=== PATIENT | male | born 1960 | race Caucasian/White ===

== ENCOUNTER 2017-11-12 21:32 | Emergency (ER) | payer OTHER ==
[2017-11-12] MEDS ORDERED: Ondansetron INJ* 2 MG/ML VIAL ONE (21:39)
[2017-11-12] MEDS ORDERED: NS 0.9% 1000 ML* 1,000 ML IV ONE ×3 (21:41→23:34)
--- NOTE | 2017-11-12 21:53 | ED ---
Complex/Multi-Sys Presentation - HPI Summary HPI Summary: This patient is a 57 year old M BIBA to [facility] with a chief complaint diarrhea that began 3 days ago. Pt also complains of multiple recent falls that occurred INSECTICIDE MIXER. Per EMS, patient has had 4 to 5 recent falls; the most recent occurring 3 to 4 hours prior to arrival. The patient rates the pain 0/10 in severity. Symptoms aggravated by nothing. Symptoms alleviated by nothing. Patient reports laceration to R knee, decreased appetite, and nausea. Per EMS, patient is having failure to thrive. Patient reports he cut back on his ETOH consumption 2 weeks ago. - History Of Current Complaint Chief Complaint: EDGeneral Hx Obtained From: Patient, EMS Onset/Duration: Sudden Onset, Lasting Days, Still Present Timing: Constant Severity Currently: Mild Severity Initially: Mild Character: Unable To Describe Aggravating Factor(s): Nothing Alleviating Factor(s): Nothing Associated Signs And Symptoms: Positive: Other - Patient reports laceration to R knee, decreased appetite, diarrhea, and nausea. - Allergies/Home Medications Allergies/Adverse Reactions: Allergies Allergy/AdvReac Type Severity Reaction Status Date / Time No Known Allergies Allergy Verified 11/12/17 23:37 Home Medications: Home Medications Aspirin [Aspir-Low] 1 tab PO DAILY 11/12/17 [History Confirmed 11/12/17] Citalopram Hydrobromide [Citalopram HBr] 40 mg PO DAILY 11/12/17 [History Confirmed 11/12/17] Lisinopril TAB* [Prinivil TAB 5 MG*] 5 mg PO DAILY 11/12/17 [History Confirmed 11/12/17] Metoprolol Succinate 100 mg PO DAILY 11/12/17 [History Confirmed 11/12/17] Triamterene/HCTZ 37.5-25 MG* [Dyazide CAP*] 1 cap PO DAILY 11/12/17 [History Confirmed 11/12/17] PMH/Surg Hx/FS Hx/Imm Hx Previously Healthy: No Cardiovascular History: Reports: Hx Hypertension Respiratory History: Reports: Hx Chronic Obstructive Pulmonary Disease (COPD) Infectious Disease History: No Infectious Disease History: Denies: Traveled Outside the [place] in Last 30 Days - Family History Known Family History: Positive: Unknown - Due to AMS - Social History Occupation: Disabled Lives: Alone Alcohol Use: Rare Substance Use Type: Reports: None Hx Tobacco Use: Yes Smoking Status (MU): Light Every Day Tobacco Smoker Review of Systems - ROS Summary Review of Systems Summary: ROS limited due to altered mental status. Positive: Diarrhea, Nausea, Other - Positive decreased appetite Positive: Other - Positive laceration to R knee All Other Systems Reviewed And Are Negative: No Physical Exam - Summary Physical Exam Summary: Appearance: Alert, conversive, ill appearing Skin: Warm, dry, no mottling, no rashes, no contusions. Superficial lacerations to his R knee. HEENT: EOMI, PERRL, markedly dry mucous membranes Neck: No masses on the neck, supple Respiratory: Clear to auscultation, breath sounds present, no rales, no rhonchi , no wheezes Cardiovascular: RRR, pulses are symmetrical in both lower and upper extremities. Delayed capillary refill Abdomen: Soft, non-tender. Ventral hernia Bowel Sounds: Present Musculoskeletal: No CVA tenderness, no obvious deformity, moving all extremities in a grossly normal manner Neurological: A&Ox3, CN II-XII Intact, moving all extremities symmetrically Psychiatric: Normal affect and mood Triage Information Reviewed: Yes Vital Signs On Initial Exam: Initial Vitals Temp Pulse Resp BP Pulse Ox 97.3 F 83 25 66/50 93 11/12/17 21:44 11/12/17 21:44 11/12/17 21:44 11/12/17 21:44 11/12/17 21:44 Vital Signs Reviewed: Yes Procedures - Central Line Right Femoral Central Line Lumen: triple Central Line Procedure: betadine prep, sterile drapes applied, sterile dressing applied Central Line Position: femoral (R) Anesthesia: Lidocaine cc's of anesthesia: 3 Complications: none Central Line Post Position: sutured, good blood return Diagnostics - Vital Signs Vital Signs Temp Pulse Resp BP Pulse Ox 11/12/17 21:44 97.3 F 83 25 66/50 93 - Laboratory Result Diagrams: 11/12/17 21:55 11/12/17 23:47 Lab Statement: Any lab studies that have been ordered have been reviewed, and results considered in the medical decision making process. - Radiology CXR Radiology Interpretation Completed By: ED Physician - CXR reveals, per ED physician, no acute pneumonias. Poor quality, I cannot see the costophrenic angle. - CT Maxillofacial CT CT Interpretation Completed By: Radiologist - Maxillofacial CT reveals, per radiologist, 1. There are dependent fluid levels in the right and left maxillary sinuses and in the right aspect of the sphenoid sinus, cannot exclude acute sinusitis. 2. No acute maxillofacial fracture. ED physician has reviewed this radiology report. Brain CT CT Interpretation Completed By: Radiologist - Brain CT reveals, per radiologist , 1. There are dependent fluid levels in the right maxillary sinus and right aspect of the sphenoid sinus, cannot exclude acute sinusitis. 2. No acute intracranial pathology. ED physician has reviewed this radiology report. Cervical Spine CT CT Interpretation Completed By: Radiologist - Cervical spine CT reveals, per radiologist, 1. No acute fracture or subluxation. 2. Severe dental caries involving numerous teeth with several foci periapical lucency. ED physician has reviewed this radiology report. - EKG 2158 Cardiac Rate: NL EKG Rhythm: Sinus Rhythm - [address] Segment: Non-Specific EKG Interpretation: PACs, left atrial enlargement, and prolonged QRSD Re-Evaluation - Re-Evaluation First Eval Re-Evaluation Time: 21:50 Change: Unchanged Comment: Blood pressure is 66 systolic. If he is persistently hypotensive, we may have to insert a central line. Second Eval Re-Evaluation Time: 22:02 Change: Improved Comment: His first liter of fluids is finishing and his systolic BP is 72 Third Eval Re-Evaluation Time: 23:10 Change: Unchanged Comment: Discussed results and plan of care with the patient and his family. Fourth Eval Re-Evaluation Time: 23:45 Change: Unchanged Comment: BP is 96/73 Complex Multi-Symp Course/Dx Course Of Treatment: This patient is a 57 year old M BIBA to [facility] with a chief complaint of diarrhea, abd pain, and multiple recent falls that occurred INSECTICIDE MIXER. Per EMS, patient has had 4 to 5 recent falls; the most recent occurring 3 to 4 hours prior to arrival. Physical Exam Findings: Markedly dry mucous membranes. Ventral hernia. Dried stool to his lower extremities. Delayed capillary refill. Superficial lacerations to his R knee. An EKG reveals normal sinus rhythm at 77 BPM, PACs, left atrial enlargement, prolonged QRSD, and nonspecific ST T wave changes. CXR reveals, per ED physician, no acute pneumonias. Poor quality, I cannot see the costophrenic angle. Maxillofacial CT reveals, per radiologist, 1. There are dependent fluid levels in the right and left maxillary sinuses and in the right aspect of the sphenoid sinus, cannot exclude acute sinusitis. 2. No acute maxillofacial fracture. Brain CT reveals, per radiologist, 1. There are dependent fluid levels in the right maxillary sinus and right aspect of the sphenoid sinus, cannot exclude acute sinusitis. 2. No acute intracranial pathology. Cervical spine CT reveals, per radiologist, 1. No acute fracture or subluxation. 2. Severe dental caries involving numerous teeth with several foci periapical lucency. Bloodwork and UA obtained. In the ED course the patient was given fluids, ciprofloxacin, flagyl, levophed, and vancomycin. Consult with Dr. Moore (hospitalist) at 2235. He communicated that if the patient needs new dialysis, then he must be transferred for further evaluation. Consult with Dr. Jenkins (solution professional) at 0028. He agrees to accept the patient at [facility] for further evaluation. The patient is agreeable with this plan. - Diagnoses Provider Diagnoses: Sepsis, Acute renal failure - Physician Notifications Discussed Care Of Patient With: Basilio Moore Time Discussed With Above Provider: 22:35 Instructed by Provider To: Other - Consult with Dr. Moore (hospitalist) at 2235. He communicated that if the patient needs new dialysis, then he must be transferred for further evaluation. Consult with Dr. Jenkins (solution professional) at 0028. He agrees to accept the patient at [facility] for further evaluation. - Critical Care Time Critical Care Time: 75-104 min - 90 minutes Discharge - Sign-Out/Discharge Documenting (check all that apply): Patient Departure - Trasnfer - Discharge Plan Condition: Stable Disposition: TRANS HIGHER LVL OF CARE FAC Referrals: Shima Akers MD [Primary Care Provider] - Attestations Scribe Attestation: This is elba Estrada documenting for attending Kenzie Bhat MD. User Type: Provider with Scribe Provider Attestation: The documentation recorded by the scribe accurately reflects the service I personally performed and the decisions made by me.
[2017-11-12] MEDS ORDERED: Norepinephrine 16MCG/ML IVPRE* 4,000 MCG/250 ML BAG IV ONE ×2 (22:07)
[2017-11-12 22:10] LABS: Hematocrit 59 % (42-52); Mean Corpuscular HGB Conc 34 g/dl (31-36); Mean Corpuscular Hemoglobin 31 pg (27-31); Mean Corpuscular Volume 92 fL (80-94); Mean Platelet Volume 9.7 um3 (7.4-10.4); Platelet Count 207 10^3/ul (150-450); Red Blood Count 6.41 10^6/ul (4.00-5.40); Red Cell Distribution Width 14 % (10.5-15); White Blood Count 25.3 10^3/ul (3.5-10.8)
[2017-11-12 22:18] LABS: ABS Basophils 0 10^3/ul (0-0.2); ABS Eosinophils 0 10^3/ul (0-0.6); ABS Lymphocytes 1.1 10^3/ul (1.0-4.8); ABS Monocytes 0.8 10^3/ul (0-0.8); ABS Neutrophils 23.4 10^3/ul (1.5-7.7); ABS Nucleated RBC 0 10^3/ul
[2017-11-12 22:24] LABS: EGFR Non-African American 5.1 (>60)
[2017-11-12] MEDS ORDERED: Ciprofloxacin 400MG IVPREMIX(* 400 MG/200 ML BAG IVPB ONE (22:36)
[2017-11-12] MEDS ORDERED: metroNIDAZOLE IV 500 MG/100ML* 500 MG/100 ML BAG IVPB ONE (22:37)
[2017-11-12] MEDS ORDERED: Vancomycin(*) 1,500 MG in NS 0.9% 250 ML* 250 ML IVPB ONE (22:37)
[2017-11-12 23:29] LABS: Eosinophil % 0.1 % (0-6); Lymphocyte % 4.4 % (25-47); Nucleated Red Blood Cells % 0.1
--- NOTE | 2017-11-12 23:44 | RAD ---
EXAM: CT Head Without Intravenous Contrast CLINICAL HISTORY: 57 years old, male; Pain; Headache; Additional info: Altered ms TECHNIQUE: Axial computed tomography images of the head/brain without intravenous contrast. COMPARISON: No relevant prior studies available. FINDINGS: Brain: Unremarkable. No hemorrhage. No significant white matter disease. No edema. Ventricles: Unremarkable. No ventriculomegaly. Bones/joints: Unremarkable. No acute fracture. Soft tissues: Unremarkable. Sinuses: There are dependent fluid levels in the right maxillary sinus and right aspect of the sphenoid sinus, cannot exclude acute sinusitis. Mastoid air cells: Unremarkable as visualized. No mastoid effusion. IMPRESSION: 1. There are dependent fluid levels in the right maxillary sinus and right aspect of the sphenoid sinus, cannot exclude acute sinusitis. 2. No acute intracranial pathology. R0
--- NOTE | 2017-11-12 23:46 | RAD ---
EXAM: CT Maxillofacial Without Intravenous Contrast CLINICAL HISTORY: 57 years old, male; Injury or trauma; Fall; Initial encounter; Abrasion; Head/scalp; Loss of consciousness not known; Additional info: Facial trauma TECHNIQUE: Axial computed tomography images of the face without intravenous contrast. Coronal and sagittal reformatted images were created and reviewed. COMPARISON: No relevant prior studies available. FINDINGS: Bones/joints: No acute maxillofacial fracture. Soft tissues: Unremarkable. Orbits: Unremarkable. Sinuses: There are dependent fluid levels in the right and left maxillary sinuses and in the right aspect of the sphenoid sinus, cannot exclude acute sinusitis. There is mild mucosal thickening in the maxillary sinuses. Dental: There is poor dentition with missing teeth, multiple dental cavities and multifocal periodontal disease. IMPRESSION: 1. There are dependent fluid levels in the right and left maxillary sinuses and in the right aspect of the sphenoid sinus, cannot exclude acute sinusitis. 2. No acute maxillofacial fracture. R0
[2017-11-13 00:20] LABS: INR 1.29 (0.77-1.02)
--- NOTE | 2017-11-13 00:26 | RAD ---
EXAM: CT Cervical Spine Without Intravenous Contrast CLINICAL HISTORY: 57 years old, male; Injury or trauma; Fall; Initial encounter; Abrasion; Additional info: Fall, pain TECHNIQUE: Axial computed tomography images of the cervical spine without intravenous contrast. Coronal and sagittal reformatted images were created and reviewed. COMPARISON: No relevant prior studies available. FINDINGS: Vertebrae: No acute fracture or subluxation identified. Vertebral body heights are maintained. There is straightening of the normal cervical lordosis. Mild degenerative change noted from C6-T1. Discs/spinal canal/neural foramina: No acute findings. No spinal canal stenosis. Soft tissues: Unremarkable. Sinuses: There is partial opacification of the right sphenoid sinus. Dental: Severe dental caries noted in numerous teeth with areas of maxillary and mandibular periapical lucency. Lung apices: Unremarkable as visualized. IMPRESSION: 1. No acute fracture or subluxation. 2. Severe dental caries involving numerous teeth with several foci of periapical lucency. R0
[2017-11-13] MEDS ORDERED: NS 0.9% 250 ML* 250 ML ONE (01:50)
[2017-11-13 01:53] LABS: EGFR Non-African American 5.7 (>60)
[2017-11-13 02:03] LABS: ABS Basophils 0 10^3/ul (0-0.2); ABS Eosinophils 0 10^3/ul (0-0.6); ABS Lymphocytes 0.9 10^3/ul (1.0-4.8); ABS Monocytes 0.2 10^3/ul (0-0.8); ABS Neutrophils 24.9 10^3/ul (1.5-7.7); ABS Nucleated RBC 0.1 10^3/ul; Hematocrit 58 % (42-52); Mean Corpuscular HGB Conc 33 g/dl (31-36); Mean Corpuscular Hemoglobin 31 pg (27-31); Mean Corpuscular Volume 94 fL (80-94); Red Blood Count 6.21 10^6/ul (4.00-5.40); Red Cell Distribution Width 14 % (10.5-15)
[2017-11-13 02:48] LABS: ABS Basophils 0 10^3/ul (0-0.2); ABS Neutrophils 10.4 10^3/ul (1.5-7.7); Monocytes % 3 % (0-7)
[2017-11-13 03:04] VITALS: BP 0/0
--- NOTE | 2017-11-13 07:34 | RAD ---
HISTORY: altered, sepsis COMPARISONS: December 24, 2013 VIEWS: 1: frontal portable view of the chest at 11:54 PM. The left costophrenic angle is cut off. FINDINGS: LINES AND TUBES: None. CARDIOMEDIASTINAL SILHOUETTE: The cardiomediastinal silhouette is normal for portable technique. PLEURA: The right costophrenic angle is sharp. The left costophrenic angle is cut off. LUNG PARENCHYMA: The lungs are clear. ABDOMEN: The upper abdomen is clear. There is no subphrenic gas. BONES AND SOFT TISSUES: No bone or soft tissue abnormalities are noted. IMPRESSION: LIMITED STUDY. NO ACTIVE CARDIOPULMONARY DISEASE. R1
--- NOTE | 2017-11-13 16:02 | PN ---
Progress Note - Progress Note Date of Service: 11/12/17 Note: Pt. seen in ER 11/12 and transferred to [facility] with dx of renal failure and sepsis. Preliminary BC today is growing gram positive and negative bacilli. Will fax final culture when available.
--- NOTE | 2017-11-16 06:46 | PN ---
Progress Note - Progress Note Date of Service: 11/16/17 Note: final culture available. patient transferred [facility] so will have results faxed. gave to wardrobe consultant to do so.
== END 2017-11-13 02:45 | disposition short-term general hospital (02) ==
LOC: ED 21:32
DX: A41.9 Sepsis, unspecified organism (principal); R65.20 Severe sepsis without septic shock; N17.9 Acute kidney failure, unspecified; I10 Essential (primary) hypertension; J44.9 Chronic obstructive pulmonary disease, unspecified; Z72.0 Tobacco use; K92.2 Gastrointestinal hemorrhage, unspecified; K02.9 Dental caries, unspecified; Z91.81 History of falling; Z79.82 Long term (current) use of aspirin
CPT/HCPCS: 36415; 70450; 70486; 71045; 72125; 80053; 80320; 82272; 82550; 83605; 83735; 83880; 84443; 84484; 85025; 85610; 85730; 86140; 87040; 87045; 87046; 87077; 87186; 87205; 87899; 93005; 96361; 96374; 96375; 99285; G0480; J0744; J2405; J3370; J3490

== ENCOUNTER 2017-12-12 11:17 | Inpatient (IN) | payer OTHER ==
[2017-12-12] MEDS ORDERED: Acetaminophen TAB* 325 MG PO PRN (16:43)
[2017-12-12 17:15] LABS: EGFR Non-African American 111.6 (>60)
[2017-12-12 17:26] LABS: Hematocrit 26 % (42-52); Hemoglobin 8.2 g/dl (14.0-18.0); Mean Corpuscular HGB Conc 31 g/dl (31-36); Mean Corpuscular Hemoglobin 28 pg (27-31); Mean Corpuscular Volume 90 fL (80-94); Mean Platelet Volume 7.5 um3 (7.4-10.4); Platelet Count 358 10^3/ul (150-450); Red Blood Count 2.93 10^6/ul (4.00-5.40); Red Cell Distribution Width 16 % (10.5-15)
[2017-12-12 17:27] LABS: ABS Basophils 0.1 10^3/ul (0-0.2); ABS Eosinophils 0.3 10^3/ul (0-0.6); ABS Lymphocytes 1.7 10^3/ul (1.0-4.8); ABS Monocytes 0.8 10^3/ul (0-0.8); ABS Neutrophils 8.2 10^3/ul (1.5-7.7); ABS Nucleated RBC 0 10^3/ul; Eosinophil % 2.3 % (0-6); Lymphocyte % 15.1 % (25-47); Nucleated Red Blood Cells % 0.1
[2017-12-12] MEDS ORDERED: Albuterol 2.5 MG/3 ML NEB.SOL* (0.083%) INH PRN (17:52)
[2017-12-12] MEDS ORDERED: Spiriva Inhaler DEVICE* 1 EACH DEVICE SCH (18:00)
[2017-12-12] MEDS ORDERED: Multiple Vitamin IV ADULT* 10 ML, Thiamine IV* 100 MG, Folic Acid IV* 1 MG in NS 0.9% 1... IVPB ONE (20:00)
[2017-12-12] MEDS: Albuterol/Ipratropium NEB.SOL* Albuterol 2.5 MG/Ipratropium 0.5 MG 3 ML INH SCH ×2 (20:18→23:16)
[2017-12-12] MEDS: Mometasone/Formoter 100/5 MDI INH SCH (20:19)
[2017-12-12] MEDS: Diphenoxylat/Atrop 2.5-0.025M* 1 TAB PO SCH (20:22)
--- NOTE | 2017-12-12 21:35 | HP ---
CC: Dr. Akers * ADMISSION HISTORY AND PHYSICAL: DATE OF ADMISSION: 12/12/17 PRIMARY CARE PROVIDER: Dr. Akers. ATTENDING PHYSICIAN: Dr. Tegan Perez.* (DICTATED BY HALEY GUTIERREZ NP) HISTORY OF PRESENT ILLNESS: This is a 57-year-old male patient, who was a patient here at [facility] a month ago. He was transferred to [facility]. Essentially, the patient had acute renal failure in the setting of GI bleeding and also incarcerated bowel. The patient was transferred because he was going to need dialysis, which could not be provided here. For his stay at [facility], he had multiple complications including acute colitis, septic shock, GI hemorrhaging, encephalopathic changes, acute respiratory failure requiring intubation, incarcerated umbilical hernia, status post resection and colostomy, and also lung abscess. The patient underwent treatment for bacteremia from his GI source secondary to his incarcerated bowel. His exploratory laparotomy that was done on 11/14/17 in which 100 cm of bowel was removed. The patient at that time had been on several different pressors and was ultimately extubated on 11/21/17. Post-operatively, he had respiratory failure again requiring reintubation for hypercarbic hypoxic respiratory failure, and he was febrile. A CT scan revealed lung abscess on the right. The patient was started on ertapenem and then was extubated again on 11/25/17. During this time, he also had high output on his ostomy and he was having trouble tolerating p.o. He was experiencing dumping syndrome, malabsorption, and short bowel. The patient was on TPN for several days at that point because of his low caloric intake and malnutrition. The patient continued on TPN per [facility]'s notes, also his renal function came back to normal. At that point, the surgical team at [facility] felt it was stable to come back to [facility]. He was accepted back for rehabilitation needs on Swing status. MEDICATIONS: Per the discharge list from [facility] are: 1. Tylenol 650 mg q.6 hours as needed. 2. Citalopram 40 mg oral daily. 3. Lomotil 2 tablets before meals and nightly 4 times daily. 4. DuoNeb 4 times daily. 5. Lisinopril 5 mg daily. 6. Loperamide 4 mg before meals and nightly up to 4 times a day. 7. Metoprolol 100 mg tablet daily, which is currently being held. 8. Metoprolol tartrate 25 mg 2 times a day, also being held. 9. Ertapenem 1 g IV 24 hours 10. Triamterene and hydrochlorothiazide 37.5/25, one tablet oral daily, also being held. SOCIAL HISTORY: The patient has a 35-year history of smoking 1 pack a day. Denies any ETOH use or abuse. Denies any illicit drug use. He lives with his girlfriend, who is his healthcare proxy, I have not spoken with her yet today. CODE STATUS: He is a full code. DIET: The patient is allowed to have a GI soft diet with Ensure 3 times a day plus TPN. REVIEW OF SYSTEMS: The patient denies any fever, fatigue, or chills. No acute shortness of breath. No abdominal pain. No nausea or vomiting. No diarrhea. No urinary complaints and no further constitutional complaints. PHYSICAL EXAMINATION GENERAL: Today shows a well-appearing individual, in no acute distress. VITAL SIGNS: Temperature is 97.5, blood pressure is 96/68, heart rate 78, respiratory rate 16, sating at 100% on 4 L nasal cannula. HEENT: The patient is atraumatic, normocephalic. PERRLA, nonicteric sclerae. Oral mucosa is moist. Tongue is midline. NECK: Supple, nontender. No JVD noted. No carotid bruits auscultated. LUNGS: The patient has poor air entry bilaterally with decreased air exchange, worse on the right than on the left. He does have bilateral expiratory wheeze and remains oxygen dependent. CARDIOVASCULAR: S1, S2 present. No murmurs, gallops, or rubs noted. Rate and rhythm were regular. ABDOMEN: Soft, nontender, nondistended. He has an ostomy draining soft, green- to- brown stools. He has a surgical wound with janet that are intact. The wound is partially open at the lower portion with some exudative drainage, which is mostly clear, does not appear to be purulent. He has gauze wet packing with dry dressing over it. He does have a significant amount of erythema diffusely across the abdomen around his surgical wound. I am unsure if this is secondary to all the tape versus poor closure at the surgical site. : Deferred. MUSCULOSKELETAL: There is no clubbing and no cyanosis. He has bilateral lower extremity edema. +2 distal pulses palpable. NEUROLOGIC: He is alert and oriented x3. He can be forgetful at times and requires reorientation. PSYCHIATRIC: He is cooperative and appropriate. SKIN: Abdomen and surgical site as noted above. He does have a significant amount of peeling on his feet, does not appear to have any open wounds. DIAGNOSTIC STUDIES/LAB DATA: CBC is pending; however, sodium is 142, potassium 3.8, chloride 104, CO2 36, BUN 32, creatinine 0.73. GFR is 111.6. Glucose 86. Liver function is within normal limits. Albumin 2.4, protein 6.3. AST 12, ALT 14. Alk phos 72. ADMISSION DIAGNOSES: 1. Protein calorie malnutrition secondary to GI losses. 2. Chronic obstructive pulmonary disease and hypoxic respiratory failure, oxygen dependent. 3. Status post small bowel obstruction, bowel resection. 4. Right lung abscess, hospital acquired. 5. Acute renal failure, which is now resolved. PLAN: 1. The patient has been admitted to [facility]. All of his acute issues have resolved. His largest issues to overcome are his protein calorie malnutrition and his respiratory status. At this point, we recommend while the patient is on swing status to have daily PT, ambulate as tolerated. He can shower as tolerated. We will work to get him off of his TPN, if not continue his TPN this evening because the orders were not originally sent with the patient's chart. I spoke with the surgical third year attending at [facility], Dr. Guero Turner from the surgical team who states that the patient has no restrictions on his PO intake and that he should focus on high protein. We will order a GI soft diet with Ensure 3 times a day. Our goal would be to get the patient off the TPN. He will be seen by nutrition. We may also need a calorie count. 2. For his lung abscess, we will continue ertapenem. He needs 4 weeks of this medications which will complete on 12/28/17. Will consult Dr. Dennis to further manage antibiotics. 3. For his COPD, he is currently on DuoNebs. I think at this point, we can continue DuoNebs for the first 24 hours, then do albuterol as needed and start the patient on low-dose Spiriva and Advair to treat his underlying COPD. Titrate and wean his oxygen as tolerated. He is currently on 4 L, I would like to sprint him on 2 L and see how he tolerates. Also, he will need incentive spirometry and continue his pulmonary toilet. 4. Surgical Wound. Will place consult with [employer]. Per Dr. Turner, they were doing daily moist packing with wet to dry dressings, however his surrounding skin appears erythmatous and may need a different approach. Will defer to Wound Care's recommendations. The rest of the patient's course will be determined by further diagnostics, laboratory and any other input from other providers as warranted during this admission. Again, the patient has been [place] [facility] [place] This has been discussed with Dr. Tegan Perez, my attending for today. This admission has taken in excess of 60 minutes interfacing with the staff at [facility] , with staff here in the hospital, pharmacy and assessing the patient directly and coordinating the plan of care with the patient and primary RN. HALEY GUTIERREZ NP [id number]/CPS #: [id number] FRANCISCO
[2017-12-13] MEDS: Albuterol/Ipratropium NEB.SOL* Albuterol 2.5 MG/Ipratropium 0.5 MG 3 ML INH SCH (03:17)
[2017-12-13] MEDS: Mometasone/Formoter 100/5 MDI INH SCH ×2 (07:29→20:34)
[2017-12-13] MEDS: Tiotropium CAP.INH* CAP.INH/18 MCG (USE ORDER SET !) INH SCH (07:29)
[2017-12-13] MEDS ORDERED: ERTAPENEM SODIUM 1 GM IV SCH (08:00)
[2017-12-13] MEDS: Diphenoxylat/Atrop 2.5-0.025M* 1 TAB PO SCH ×4 (08:01→21:54)
[2017-12-13] MEDS: Citalopram TAB* 40 MG PO SCH (08:01)
[2017-12-13] MEDS: Ertapenem* 1 GM in NS 0.9% 50 ML* 50 ML IVPB SCH (08:01)
[2017-12-13] MEDS: Aspirin 81 mg CHEW TAB* 81 MG TAB.CHEW PO SCH (08:01)
--- NOTE | 2017-12-13 15:54 | RAD ---
HISTORY: follow up lung abscess COMPARISONS: November 12, 2012 VIEWS: 2: Frontal and lateral views of the chest. FINDINGS: CARDIOMEDIASTINAL SILHOUETTE: The cardiomediastinal silhouette is normal. ARNAUD: The arnaud are normal. PLEURA: The costophrenic angles are sharp. No pleural abnormalities are noted. LUNG PARENCHYMA: There has been interval development of focal alveolar opacification of the right lower lung, localizing to the right middle lobe. There is linear opacification of the left lower lung ABDOMEN: The upper abdomen is clear. There is no subphrenic gas. BONES AND SOFT TISSUES: No bone or soft tissue abnormalities are noted. OTHER: None. IMPRESSION: THERE HAS BEEN INTERVAL DEVELOPMENT OF CONSOLIDATION OF THE RIGHT LOBE. IF THERE IS CLINICAL CONCERN FOR LUNG ABSCESS, CONSIDER FURTHER EVALUATION WITH CONTRAST-ENHANCED CT OF THE CHEST.
[2017-12-13] MEDS ORDERED: TPN* 24 HR with Sodium Chloride Conc 23.4%* 100 MEQ, Potassium Chloride TPN 50 MEQ, Pot... CENT\\PICC SCH ×12 (17:00)
--- NOTE | 2017-12-13 21:49 | CONS ---
CONSULTATION REPORT: DATE OF CONSULT: 12/13/17 REQUESTING PROVIDER: Kaylee Awan NP CONSULTING SERVICE: Infectious Disease. REASON FOR CONSULT: Lung abscess. IMPRESSION: 1. Report of a lung abscess that developed in the setting of ischemic and necrotic bowel which was resected, acute kidney injury, septic shock. I do not have further information on the lung abscess as far as imaging or his treatment other than that he has been on ertapenem and broad-spectrum antibiotics since early October. 2. Bacteremia E. coli, Klebsiella and bacillus species on 11/12/[address] presented to [facility] with the above symptoms. RECOMMENDATIONS: We will continue his ertapenem. Obtain a chest x-ray to see what is left of this lung abscess and make some decisions about his continued antibiotic therapy based on those results. HISTORY OF PRESENT ILLNESS: This is a 57-year-old man transferred here from [facility] for a rehabilitation stay. He cannot provide any of the preceding history, which was obtained instead from review of the medical record, which shows that he came here mid October with septic shock, acute kidney injury and incarcerated abdominal hernia and was transferred to [facility] where he had the bowel which was resected. He has ostomy formed. He was on pressors, broad- spectrum antibiotics and had multiple intraabdominal procedures. At some point , because of a fever after being there few days he had chest imaging that showed an abscess. He had continued on broad-spectrum antibiotics and finally settled on ertapenem since about early November. He has apparently tolerated that well. Today, he denies any cough, trouble breathing, chest pain, or shortness of breath. He has an ostomy with liquid stool. He has no fever, chills, sweats, or pain. PAST MEDICAL HISTORY: 1. Depression. 2. Abdominal hernia complicated by incarceration, necrotic bowel, status post exploratory laparotomy, resection of bowel. 3. Hypertension. 4. COPD. ALLERGIES: No known drug allergies. MEDICATIONS: 1. Tylenol. 2. Albuterol. 3. Aspirin. 4. Celexa. 5. Ertapenem 1 g IV every 24 hours. 6. Spiriva. SOCIAL HISTORY: His home is in [place]. He has been in the hospital for the last month. Denies injection drugs. FAMILY HISTORY: No recurrent infections. REVIEW OF SYSTEMS: All negative to a 14-point review of systems except as noted above in the history of present illness. PHYSICAL EXAM: Vital Signs: Temperature is 37, respiratory rate 16, blood pressure 129/51, oxygen saturation 98% on 4 L. In general, he is awake, not in distress. Neurologic: He is oriented x2. Follows some commands. Moves all his extremities. HEENT: There is no conjunctival hemorrhage. Oropharynx without lesions. Neck is supple without mass. Heart is regular rate and rhythm without murmurs, rubs, or gallops. Lungs are clear to auscultation bilaterally. Abdomen: Soft, nontender, nondistended. There are bowel sounds present. There is right lower quadrant ostomy with liquid stool. Skin: There is no rash or splinter hemorrhage. Musculoskeletal: There is no spine tenderness to palpation. LABORATORY DATA: White blood cell count 11, hemoglobin 8, MCV 90. Creatinine 0.7. Please see impressions and recommendations as outlined above. Thanks for asking me to see Mr. Alves in consultation. [id number]/[facility] #: [id number] [facility]OSPITALCallie
[2017-12-13] MEDS: Alteplase (CATHFLO)* 2 MG VIAL IV ONE (21:57)
[2017-12-14] MEDS: Nystatin TOP POWDER* 15 GM BTL TOPICAL SCH ×4 (03:00→20:19)
[2017-12-14] MEDS: Alteplase (CATHFLO)* 2 MG VIAL IV ONE (05:52)
[2017-12-14 07:07] LABS: Hematocrit 25 % (42-52); Mean Corpuscular HGB Conc 32 g/dl (31-36); Mean Corpuscular Hemoglobin 29 pg (27-31); Mean Corpuscular Volume 90 fL (80-94); Platelet Count 300 10^3/ul (150-450); Red Blood Count 2.78 10^6/ul (4.00-5.40); Red Cell Distribution Width 16 % (10.5-15); White Blood Count 10.6 10^3/ul (3.5-10.8)
[2017-12-14 07:24] LABS: EGFR Non-African American 151.5 (>60)
[2017-12-14] MEDS: Mometasone/Formoter 100/5 MDI INH SCH ×2 (07:47→20:17)
[2017-12-14] MEDS: Tiotropium CAP.INH* CAP.INH/18 MCG (USE ORDER SET !) INH SCH (07:48)
[2017-12-14 07:50] LABS: ABS Basophils 0.1 10^3/ul (0-0.2); ABS Eosinophils 0.2 10^3/ul (0-0.6); ABS Lymphocytes 1.6 10^3/ul (1.0-4.8); ABS Monocytes 0.7 10^3/ul (0-0.8); ABS Neutrophils 7.9 10^3/ul (1.5-7.7); ABS Nucleated RBC 0 10^3/ul; Eosinophil % 2.2 % (0-6); Lymphocyte % 15.5 % (25-47); Nucleated Red Blood Cells % 0.1
[2017-12-14] MEDS: Diphenoxylat/Atrop 2.5-0.025M* 1 TAB PO SCH ×4 (09:31→20:18)
[2017-12-14] MEDS: Ertapenem* 1 GM in NS 0.9% 50 ML* 50 ML IVPB SCH (09:31)
[2017-12-14] MEDS: Citalopram TAB* 40 MG PO SCH (09:32)
[2017-12-14] MEDS: Aspirin 81 mg CHEW TAB* 81 MG TAB.CHEW PO SCH (09:32)
--- NOTE | 2017-12-14 14:41 | PN ---
Subjective Date of Service: 12/14/17 Interval History: Mr. Alves reports feeling well this morning. He has no complaints. Denies pain. He has been up ambulating in the hallways with PT this morning. Nursing reports that he became slightly agitated this morning, stating that he wanted to leave as none of his family has been visiting him. During my visit, he appeared in good spirits. Family History: Unchanged from Admission Social History: Unchanged from Admission Past Medical History: Unchanged from Admission Objective Active Medications: Acetaminophen (Tylenol Tab*) 650 mg PO Q6HR PRN Albuterol (Ventolin 2.5 Mg/3 Ml Neb.Gissel*) 2.5 mg INH Q4H PRN Aspirin (Aspirin 81 Mg Chew Tab*) 81 mg PO DAILY JESSICA Citalopram Hydrobromide (Celexa Tab*) 40 mg PO DAILY JESSICA Diphenoxylate HCl/Atropine (Lomotil Tab*) 2 tab PO QID ACHS JESSICA Heparin Sodium (Porcine) (Heparin Flush Picc/Ml/Cvc(*)) 1 ml FLUSH 0600,1800 JESSICA; Protocol Ertapenem 1 gm/ Sodium (Chloride) 50 mls @ 100 mls/hr IVPB Q24H JESSICA Sodium Chloride 100 meq/Potassium Chloride 50 meq/Potassium Phosphate 15 mmole/ Calcium Gluconate 15 meq/Magnesium Sulfate 10 meq/Multivitamins 10 ml/ Trace Metals 1 ml/ Dextrose 1,000 ml / Amino Acids 850 ml/ Sterile Water 150 ml/ Fat Emulsion Intravenous 250 ml/ Nutrition (Parenteral) 2,350.721 mls @ 97.947 mls/ hr CENT\PICC 1700 [facility] Sodium Chloride 100 meq/Potassium Chloride 50 meq/Potassium Phosphate 15 mmole/ Calcium Gluconate 15 meq/Magnesium Sulfate 10 meq/Multivitamins 10 ml/ Trace Metals 1 ml/ Dextrose 1,000 ml / Amino Acids 1,000 ml/ Fat Emulsion Intravenous 250 ml/Nutrition (Parenteral) 2,350.721 mls @ 97.947 mls/hr CENT\PICC 1700 JESSICA Mometasone Furoate/Formoterol Fumar (Dulera 100/5 Mdi*) 2 puff INH BID JESSICA Nystatin (Nystatin Top Powder*) 1 applic TOPICAL TID JESSICA Tiotropium [place] (Spiriva Cap.Inh*) 1 cap INH DAILY [facility] Vital Signs - 8 hr 12/14/17 12/14/17 12/14/17 07:34 07:51 08:00 Temperature 98.5 F Pulse Rate 87 89 Respiratory 18 18 Rate Blood Pressure 115/56 (mmHg) O2 Sat by Pulse 97 92 Oximetry 12/14/17 12/14/17 12/14/17 09:31 12:55 13:45 Temperature 99.5 F Pulse Rate 84 Respiratory 18 16 Rate Blood Pressure 130/54 (mmHg) O2 Sat by Pulse 96 Oximetry Oxygen Devices in Use Now: Nasal Cannula Appearance: Middle-aged male sitting in bed in no acute distress. Eyes: No Scleral Icterus, PERRLA Ears/Nose/Mouth/Throat: NL Teeth, Lips, Gums, Mucous Membranes Moist Neck: NL Appearance and Movements; NL JVP, Trachea Midline Respiratory: Symmetrical Chest Expansion and Respiratory Effort, Clear to Auscultation Cardiovascular: NL Sounds; No Murmurs; No JVD, RRR, No Edema Abdominal: NL Sounds; No Tenderness; No Distention, No Hepatosplenomegaly Lymphatic: No Cervical Adenopathy Extremities: No Edema, No Clubbing, Cyanosis Skin: - - Surgical wound to midline abdomen with janet intact. Partially open distally with packing in place. Neurological: Alert and Oriented x 3, NL Sensation, NL Gait Lines/Tubes/Other Access: Clean, Dry and Intact PICC Line Nutrition: Taking PO's, TPN - Nutrition: Malnutrition Diagnosis/Plan Malnutrition Assessment by Registered Dietitian: Malnutrition Assessment Clinical Characteristics Acute Malnutrition Assessment: - wt loss of 13% body wt within past three Criteria months - mild temporal muscle wasting per visual assessment Malnutrition Assessment: 1. [facility] soft diet textures d/t suboptimal Interventions dentition; pt in agreement 2. high calorie/high protein diet; encouragement of high protein snacks/ supplements 3. TPN w/modification for higher protein content (suggest 1000ml 10%AA in TPN) 4. Calorie Count 12/14; results and appropriate interventions 12/15 5. Follow colostomy output and replace electrolytes as appropriate Malnutrition Assessment: Goals 1. adequate nutrient delivery (parenteral + po ) to meet pt's estimated needs and maintain lean body mass and hydration status 2. surgical incision will show evidence of healing; no evidence of other skin breakdown 3. achieve and maintain serum electrolytes WNL Result Diagrams: 12/14/17 06:51 12/14/17 06:51 Assess/Plan/Problems-Billing Assessment: Mr. Alves is a 57 year old male with PMH of COPD, umbilical hernia who presented to [place] [facility] on 11/12/17 with diarrhea and multiple falls and was found to have incarcerated bowel, and ROSALIA r/t GI bleed and was subsequently transferred to [facility] for dialysis. His stay at [facility] was further complicated by septic shock, GI hemorrhage, encephalopathy, acute respiratory failure requiring intubation, lung abscess, incarcerated umbilical hernia s/p resection and colostomy with high ostomy output leading to malnutrition. He was transferred back to [facility] on 12/12/17 swing status. - Patient Problems (1) Moderate protein-calorie malnutrition Current Visit: Yes Status: Acute Priority: High Code(s): E44.0 - MODERATE PROTEIN-CALORIE MALNUTRITION SNOMED Code(s): 106700854 Comment: - 2/2 short gut syndrome and high output ostomy - Continue TPN as supplement, recommendations per associate web developer - Encouarge high protein PO intake, no restrictions Mud Analysis Supervisor consult: Malnutrition Assessment Criteria: - Acute - Wt loss of 13% body wt within past three months - Mild temporal muscle wasting per visual assessment Malnutrition Assessment Interventions: 1. [facility] soft diet textures d/t suboptimal dentition; pt in agreement 2. high calorie/high protein diet; encouragement of high protein snacks/ supplements 3. TPN w/modification for higher protein content (suggest 1000ml 10%AA in TPN) 4. Calorie Count 12/14; results and appropriate interventions 12/15 5. Follow colostomy output and replace electrolytes as appropriate (2) Lung abscess Current Visit: Yes Status: Acute Priority: High Code(s): J85.2 - ABSCESS OF LUNG WITHOUT PNEUMONIA SNOMED Code(s): 44228319 Comment: - Needs 4 weeks of ertapenem, done 12/28/17 (3) Status post small bowel resection Current Visit: Yes Status: Acute Priority: High Code(s): Z90.49 - ACQUIRED ABSENCE OF OTHER SPECIFIED PARTS OF DIGESTIVE TRACT SNOMED Code(s): 236332408675688 Comment: - Wound management per wound care consult (4) COPD (chronic obstructive pulmonary disease) Current Visit: Yes Status: Acute Priority: Medium Code(s): J44.9 - CHRONIC OBSTRUCTIVE PULMONARY DISEASE, UNSPECIFIED SNOMED Code(s): 85897944 Comment: - Continue dulera, spiriva, albuterol nebs PRN - Titrate oxygen (5) Full code status Current Visit: Yes Status: Acute Priority: High Code(s): Z78.9 - OTHER SPECIFIED HEALTH STATUS SNOMED Code(s): 928601444 (6) DVT prophylaxis Current Visit: Yes Status: Acute Code(s): HCG0182 - SNOMED Code(s): 349712743 Comment: - Lovenox Status and Disposition: Swing status for IV antibiotics.
[2017-12-14] MEDS: TPN* 24 HR with Sodium Chloride Conc 23.4%* 100 MEQ, Potassium Chloride TPN 50 MEQ, Pot... CENT\\PICC SCH ×11 (17:12)
[2017-12-14] MEDS: Enoxaparin(*) 40 MG/0.4 ML SYR SUBCUT SCH (17:17)
[2017-12-15] MEDS ORDERED: Meropenem 1 GM PREMIX(*) 1 GM/50 ML BAG IV SCH (06:00)
[2017-12-15] MEDS ORDERED: Alteplase (CATHFLO)* 2 MG VIAL IV ONE (06:25)
[2017-12-15] MEDS: Diphenoxylat/Atrop 2.5-0.025M* 1 TAB PO SCH ×4 (07:43→20:28)
[2017-12-15] MEDS: Citalopram TAB* 40 MG PO SCH (07:43)
[2017-12-15] MEDS: Aspirin 81 mg CHEW TAB* 81 MG TAB.CHEW PO SCH (07:43)
[2017-12-15] MEDS: Tiotropium CAP.INH* CAP.INH/18 MCG (USE ORDER SET !) INH SCH (08:40)
[2017-12-15] MEDS: Mometasone/Formoter 100/5 MDI INH SCH ×2 (08:40→20:21)
[2017-12-15] MEDS: Nystatin TOP POWDER* 15 GM BTL TOPICAL SCH ×3 (08:54→20:28)
--- NOTE | 2017-12-15 09:19 | PN ---
Progress Note - Progress Note Date of Service: 12/15/17 SOAP: Subjective: CC: lung abscess HPI: 57 year old man with right middle lobe lung abscess when found to have a cavitary lung lesion in setting of fever at the end of October. His sputum culture at that time grew Ecoli that was sensitive to ancef, FQ, Sulfa. He was on IV antibiotics and then DC on ertapenem for convenience. Xray done here before transfer to [facility] did not show a lung lesion. He has no cough or chest pain. Objective: Vital Signs Temp 36.8 C 12/15/17 07:18 Pulse 85 12/15/17 08:43 Resp 16 12/15/17 08:43 BP 120/52 12/15/17 07:18 Pulse Ox 92 12/15/17 08:43 Intake & Output 12/14/17 12/15/17 12/15/17 18:59 06:59 18:59 Intake Total 480 2090 240 Output Total 250 1000 350 Balance 230 1090 -110 Weight 252 lb 3.2 oz Intake: IVPB 105 ABX 105 TPN/PPN 1985 Oral 480 0 240 Output: Urine 0 750 350 Colostomy 250 Ileostomy 250 Other: Estimated Void Large # Bowel Movements 0 Estimated Stool Amount Medium # Voids 1 Gen:awake, no distress Heart:Regular, no murmur Lungs:CTA BL Abd:+BS NTND soft; ostomy Skin: no rash Laboratory Results - last 24 hr 12/14/17 12/14/17 12/14/17 06:51 11:58 18:33 Sodium 144 Potassium 4.1 Chloride 106 Carbon Dioxide 34 H Anion Gap 4 BUN 16 Creatinine 0.56 L Est GFR ( Amer) 183.3 Est GFR (Non-Af Amer) 151.5 BUN/Creatinine Ratio 28.6 H Glucose 107 H POC Glucose (mg/dL) 186 H 151 H Calcium 8.2 L C-Reactive Protein 32.87 H 12/15/17 12/15/17 00:07 06:14 Sodium Potassium Chloride Carbon Dioxide Anion Gap BUN Creatinine Est GFR ( Amer) Est GFR (Non-Af Amer) BUN/Creatinine Ratio Glucose POC Glucose (mg/dL) 145 H 120 H Calcium C-Reactive Protein Assessment: 1. Lung abscess, E.coli, not surprisingly it persists on XRay done yesterday. Have susceptibility data now. 2. elevated CRP due to #1 3. necrotic bowel s/p resection and ostomy 4. morbid obesity Plan: 1. ceftriaxone day ; weekly cbc, cmp, crp. CT chest at end of course to ensure resolution.
--- NOTE | 2017-12-15 15:32 | RAD ---
Indication: PICC placement. Single view of the chest demonstrates left PICC line in place. The tip is in the superior vena cava. No pneumothorax is noted. Right lower lobe airspace disease is noted. IMPRESSION: PICC line is noted in the superior vena cava. Right lower lobe infiltrate. No changes noted since December 13, 2017.
[2017-12-15] MEDS: cefTRIAXone(*) 2 GM in NS 0.9% 50 ML* 100 ML IVPB SCH (15:56)
[2017-12-15] MEDS: Enoxaparin(*) 40 MG/0.4 ML SYR SUBCUT SCH (16:00)
[2017-12-15] MEDS: TPN* 24 HR with Sodium Chloride Conc 23.4%* 100 MEQ, Potassium Chloride TPN 50 MEQ, Pot... CENT\\PICC SCH ×11 (17:38)
[2017-12-16 06:14] LABS: EGFR Non-African American 132.2 (>60)
[2017-12-16] MEDS: Tiotropium CAP.INH* CAP.INH/18 MCG (USE ORDER SET !) INH SCH (08:13)
[2017-12-16] MEDS: Mometasone/Formoter 100/5 MDI INH SCH ×2 (08:14→19:54)
[2017-12-16] MEDS: Citalopram TAB* 40 MG PO SCH (08:52)
[2017-12-16] MEDS: Aspirin 81 mg CHEW TAB* 81 MG TAB.CHEW PO SCH (08:52)
[2017-12-16] MEDS: Diphenoxylat/Atrop 2.5-0.025M* 1 TAB PO SCH ×4 (08:52→20:27)
[2017-12-16] MEDS: Nystatin TOP POWDER* 15 GM BTL TOPICAL SCH ×3 (08:52→20:28)
[2017-12-16] MEDS ORDERED: Magnesium Sulfate 3 GM IV IVPB ONE ×2 (13:00)
[2017-12-16] MEDS: cefTRIAXone(*) 2 GM in NS 0.9% 50 ML* 100 ML IVPB SCH (16:05)
[2017-12-16] MEDS: Enoxaparin(*) 40 MG/0.4 ML SYR SUBCUT SCH (16:05)
[2017-12-16] MEDS: TPN* 24 HR with Sodium Chloride Conc 23.4%* 100 MEQ, Potassium Chloride TPN 50 MEQ, Pot... CENT\\PICC SCH ×11 (17:17)
[2017-12-17] MEDS: Tiotropium CAP.INH* CAP.INH/18 MCG (USE ORDER SET !) INH SCH (07:23)
[2017-12-17] MEDS: Mometasone/Formoter 100/5 MDI INH SCH ×2 (07:23→22:05)
[2017-12-17] MEDS: Aspirin 81 mg CHEW TAB* 81 MG TAB.CHEW PO SCH (07:49)
[2017-12-17] MEDS: Citalopram TAB* 40 MG PO SCH (07:49)
[2017-12-17] MEDS: Nystatin TOP POWDER* 15 GM BTL TOPICAL SCH ×3 (07:49→21:22)
[2017-12-17] MEDS: Diphenoxylat/Atrop 2.5-0.025M* 1 TAB PO SCH ×4 (07:49→21:22)
[2017-12-17] MEDS: cefTRIAXone(*) 2 GM in NS 0.9% 50 ML* 100 ML IVPB SCH (15:02)
[2017-12-17] MEDS: Enoxaparin(*) 40 MG/0.4 ML SYR SUBCUT SCH (16:02)
[2017-12-17] MEDS: TPN* 24 HR with Sodium Chloride Conc 23.4%* 100 MEQ, Potassium Chloride TPN 50 MEQ, Pot... CENT\\PICC SCH ×11 (16:43)
[2017-12-18] MEDS: Mometasone/Formoter 100/5 MDI INH SCH ×2 (07:29→20:11)
[2017-12-18] MEDS: Tiotropium CAP.INH* CAP.INH/18 MCG (USE ORDER SET !) INH SCH (07:29)
[2017-12-18] MEDS: Diphenoxylat/Atrop 2.5-0.025M* 1 TAB PO SCH ×4 (09:07→20:40)
[2017-12-18] MEDS: Aspirin 81 mg CHEW TAB* 81 MG TAB.CHEW PO SCH (09:08)
[2017-12-18] MEDS: Citalopram TAB* 40 MG PO SCH (09:08)
[2017-12-18] MEDS: Nystatin TOP POWDER* 15 GM BTL TOPICAL SCH ×3 (09:11→22:53)
--- NOTE | 2017-12-18 09:50 | PN ---
Subjective Date of Service: 12/18/17 Interval History: Mr. Alves denies complaint including chest pain, SOB, nausea, or abdominal pain. Family History: Unchanged from Admission Social History: Unchanged from Admission Past Medical History: Unchanged from Admission Objective Active Medications: Acetaminophen (Tylenol Tab*) 650 mg PO Q6HR PRN Albuterol (Ventolin 2.5 Mg/3 Ml Neb.Gissel*) 2.5 mg INH Q4H PRN Aspirin (Aspirin 81 Mg Chew Tab*) 81 mg PO DAILY JESSICA Citalopram Hydrobromide (Celexa Tab*) 40 mg PO DAILY JESSICA Device (Tiotropium Inhaler Device*) 1 each .SEE ORDER .USE w/ SPIRIVA CAPS JESSICA Diphenoxylate HCl/Atropine (Lomotil Tab*) 2 tab PO QID ACHS JESSICA Enoxaparin Sodium (Lovenox(*)) 40 mg SUBCUT Q24H JESSICA Heparin Sodium (Porcine) (Heparin Flush Picc/Ml/Cvc(*)) 1 ml FLUSH 0600,1800 JESSICA; Protocol Sodium Chloride 100 meq/Potassium Chloride 50 meq/Potassium Phosphate 15 mmole/ Calcium Gluconate 15 meq/Magnesium Sulfate 10 meq/Multivitamins 10 ml/ Trace Metals 1 ml/ Dextrose 1,000 ml / Amino Acids 1,000 ml/ Fat Emulsion Intravenous 250 ml/Nutrition (Parenteral) 2,350.721 mls @ 97.947 mls/hr CENT\PICC 1700 JESSICA Ceftriaxone Sodium 2 gm/ (Sodium Chloride) 100 mls @ 200 mls/hr IVPB Q24H JESSICA Mometasone Furoate/Formoterol Fumar (Dulera 100/5 Mdi*) 2 puff INH BID JESSICA Nystatin (Nystatin Top Powder*) 1 applic TOPICAL TID JESSICA Tiotropium [place] (Spiriva Cap.Inh*) 1 cap INH DAILY [facility] Vital Signs: Temp Pulse Resp BP Pulse Ox 98.2 F 70 20 119/54 90 12/17/17 08:26 12/18/17 07:31 12/18/17 09:07 12/17/17 08:26 12/18/17 07:31 Oxygen Devices in Use Now: Nasal Cannula Appearance: Male lying in bed in NAD Eyes: No Scleral Icterus Ears/Nose/Mouth/Throat: Mucous Membranes Moist Neck: Trachea Midline Respiratory: Symmetrical Chest Expansion and Respiratory Effort, Clear to Auscultation Cardiovascular: NL Sounds; No Murmurs; No JVD, No Edema Abdominal: - - Soft, nontender, BS positive, ostomy leaking from medial side. Area all around erythematous. Midline abdominal incision with janet, open area in middle of incision line, approximately 1 cm in diameter. Stoma pink and beefy. Extremities: No Edema Skin: No Rash or Ulcers Neurological: Alert and Oriented x 3, NL Muscle Strength and Tone Nutrition: Taking PO's - Nutrition: Malnutrition Diagnosis/Plan Malnutrition Assessment by Registered Dietitian: Malnutrition Assessment Clinical Characteristics Acute Malnutrition Assessment: - wt loss of 13% body wt within past three Criteria months - mild temporal muscle wasting per visual assessment Malnutrition Assessment: 1. [facility] soft diet textures d/t suboptimal Interventions dentition; pt in agreement 2. high calorie/high protein diet; encouragement of high protein snacks/ supplements 3. TPN w/modification for higher protein content (suggest 1000ml 10%AA in TPN) 4. Calorie Count 12/14; results and appropriate interventions 12/15 5. Follow colostomy output and replace electrolytes as appropriate Malnutrition Assessment: Goals 1. adequate nutrient delivery (parenteral + po ) to meet pt's estimated needs and maintain lean body mass and hydration status 2. surgical incision will show evidence of healing; no evidence of other skin breakdown 3. achieve and maintain serum electrolytes WNL Result Diagrams: 12/14/17 06:51 12/16/17 05:25 Assess/Plan/Problems-Billing Assessment: Mr. Alves is a 57 year old male with PMH of COPD, umbilical hernia who [place] [facility] on 11/12/17 with diarrhea and multiple falls and was found to have incarcerated bowel, and ROSALIA r/t GI bleed and was subsequently transferred to [facility] for dialysis. His stay at [facility] was further complicated by septic shock, GI hemorrhage, encephalopathy, acute respiratory failure requiring intubation, lung abscess, incarcerated umbilical hernia s/p resection and colostomy with high ostomy output leading to malnutrition. He was transferred back [place] [facility] on 12/12/17 swing status. - Patient Problems (1) Status post small bowel resection Comment: - Persistent problems with maintaining seal on ostomy appliance, have requested assistance from [facility] nurses and consult from Dr. Schultz to help with appliance and to assess midline abd incision. (2) Lung abscess Comment: - Needs 4 weeks of ceftriaxone, done 12/28/17 (3) COPD (chronic obstructive pulmonary disease) Comment: - No evidence of exacerbation. - Continue dulera, spiriva, albuterol nebs PRN - Titrate oxygen (4) Moderate protein-calorie malnutrition Comment: - 2/2 short gut syndrome and high output ostomy - Continue TPN as supplement, recommendations per financial analyst intern - Encouarge high protein PO intake, no restrictions (5) DVT prophylaxis Comment: - Lovenox (6) Full code status Comment: Status and Disposition: Swing status for IV antibiotics.
--- NOTE | 2017-12-18 12:39 | PN ---
Progress Note - Progress Note Date of Service: 12/18/17 Note: Asked to eval abd wound and stoma. History noted, surgery at [facility] approx 1 month ago. Has midline laparotomy wound with janet. There is a central opening of about 2 cm, which probes to about 5 cm in depth. It is clean, with serous drainage. Surrounding skin is reddened and irritated Stoma is pink, with nice protrusion. Appliance flange not adhering well to inflamed skin. Rec: Cont gauze wound care. Will likely remove clips in the next few days. Eval for wound vac. Try stoma powder w/or w/o paste. Try stoma belt. We will follow w/ you.
[2017-12-18] MEDS: cefTRIAXone(*) 2 GM in NS 0.9% 50 ML* 100 ML IVPB SCH (16:38)
[2017-12-18] MEDS: Enoxaparin(*) 40 MG/0.4 ML SYR SUBCUT SCH (16:44)
[2017-12-18] MEDS: TPN* 24 HR with Sodium Chloride Conc 23.4%* 100 MEQ, Potassium Chloride TPN 50 MEQ, Pot... CENT\\PICC SCH ×11 (17:33)
[2017-12-19 07:27] LABS: ABS Basophils 0.1 10^3/ul (0-0.2); ABS Eosinophils 0.4 10^3/ul (0-0.6); ABS Lymphocytes 1.5 10^3/ul (1.0-4.8); ABS Monocytes 0.9 10^3/ul (0-0.8); ABS Nucleated RBC 0 10^3/ul; Eosinophil % 3.3 % (0-6); Hematocrit 28 % (42-52); Hemoglobin 8.8 g/dl (14.0-18.0); Lymphocyte % 12.9 % (25-47); Mean Corpuscular HGB Conc 32 g/dl (31-36); Mean Corpuscular Hemoglobin 28 pg (27-31); Mean Corpuscular Volume 89 fL (80-94); Mean Platelet Volume 6.9 um3 (7.4-10.4); Nucleated Red Blood Cells % 0.1; Platelet Count 324 10^3/ul (150-450); Red Blood Count 3.09 10^6/ul (4.00-5.40); Red Cell Distribution Width 16 % (10.5-15); White Blood Count 11.9 10^3/ul (3.5-10.8)
[2017-12-19 07:46] LABS: EGFR Non-African American 125.3 (>60)
[2017-12-19] MEDS: Mometasone/Formoter 100/5 MDI INH SCH ×2 (08:07→21:26)
[2017-12-19] MEDS: Tiotropium CAP.INH* CAP.INH/18 MCG (USE ORDER SET !) INH SCH (08:07)
[2017-12-19] MEDS: Diphenoxylat/Atrop 2.5-0.025M* 1 TAB PO SCH ×4 (08:11→23:50)
[2017-12-19] MEDS: Aspirin 81 mg CHEW TAB* 81 MG TAB.CHEW PO SCH (08:11)
[2017-12-19] MEDS: Citalopram TAB* 40 MG PO SCH (08:11)
[2017-12-19] MEDS: Nystatin TOP POWDER* 15 GM BTL TOPICAL SCH ×3 (08:14→21:03)
--- NOTE | 2017-12-19 10:45 | PN ---
Subjective Date of Service: 12/19/17 Interval History: Mr. Alves denies complaint today. He states that his appetite is great and he is eating a normal amount of food without nausea or abdominal pain. She further denies chest pain or SOB. Family History: Unchanged from Admission Social History: Unchanged from Admission Past Medical History: Unchanged from Admission Objective Active Medications: Acetaminophen (Tylenol Tab*) 650 mg PO Q6HR PRN Albuterol (Ventolin 2.5 Mg/3 Ml Neb.Gissel*) 2.5 mg INH Q4H PRN Aspirin (Aspirin 81 Mg Chew Tab*) 81 mg PO DAILY JESSICA Citalopram Hydrobromide (Celexa Tab*) 40 mg PO DAILY JESSICA Device (Tiotropium Inhaler Device*) 1 each .SEE ORDER .USE w/ SPIRIVA CAPS JESSICA Diphenoxylate HCl/Atropine (Lomotil Tab*) 2 tab PO QID ACHS JESSICA Enoxaparin Sodium (Lovenox(*)) 40 mg SUBCUT Q24H JESSICA Heparin Sodium (Porcine) (Heparin Flush Picc/Ml/Cvc(*)) 1 ml FLUSH 0600,1800 [facility]; Protocol Sodium Chloride 100 meq/Potassium Chloride 50 meq/Potassium Phosphate 15 mmole/ Calcium Gluconate 15 meq/Magnesium Sulfate 10 meq/Multivitamins 10 ml/ Trace Metals 1 ml/ Dextrose 1,000 ml / Amino Acids 1,000 ml/ Fat Emulsion Intravenous 250 ml/Nutrition (Parenteral) 2,350.721 mls @ 97.947 mls/hr CENT\ Ceftriaxone Sodium 2 gm/ (Sodium Chloride) 100 mls @ 200 mls/hr IVPB Q24H [facility] Mometasone Furoate/Formoterol Fumar (Dulera 100/5 Mdi*) 2 puff INH BID JESSICA Nystatin (Nystatin Top Powder*) 1 applic TOPICAL TID JESSICA Tiotropium [place] (Spiriva Cap.Inh*) 1 cap INH DAILY [facility] Vital Signs: Temp Pulse Resp BP Pulse Ox 97.6 F 78 20 112/53 93 12/19/17 06:47 12/19/17 08:09 12/19/17 08:11 12/19/17 06:47 12/19/17 08:09 Oxygen Devices in Use Now: Nasal Cannula Appearance: Male lying in bed in NAD Eyes: No Scleral Icterus Ears/Nose/Mouth/Throat: Mucous Membranes Moist Neck: Trachea Midline Respiratory: Symmetrical Chest Expansion and Respiratory Effort, Clear to Auscultation Cardiovascular: NL Sounds; No Murmurs; No JVD, No Edema Abdominal: - - Soft, nontender, BS + Extremities: No Edema Skin: No Rash or Ulcers, - - Abdomen excoriated and erythematous with leakage of stool from colostomy, midline abdominal incision with janet, opening in midline of incision approx 1-2cm Neurological: Alert and Oriented x 3, NL Muscle Strength and Tone Nutrition: Taking PO's - Nutrition: Malnutrition Diagnosis/Plan Malnutrition Assessment by Registered Dietitian: Malnutrition Assessment Clinical Characteristics Acute Malnutrition Assessment: - wt loss of 13% body wt within past three Criteria months - mild temporal muscle wasting per visual assessment Malnutrition Assessment: 1. [facility] soft diet textures d/t suboptimal Interventions dentition; pt in agreement 2. high calorie/high protein diet; encouragement of high protein snacks/ supplements 3. TPN w/modification for higher protein content (suggest 1000ml 10%AA in TPN) 4. Calorie Count 12/14; results and appropriate interventions 12/15 5. Follow colostomy output and replace electrolytes as appropriate Malnutrition Assessment: Goals 1. adequate nutrient delivery (parenteral + po ) to meet pt's estimated needs and maintain lean body mass and hydration status 2. surgical incision will show evidence of healing; no evidence of other skin breakdown 3. achieve and maintain serum electrolytes WNL Result Diagrams: 12/19/17 07:10 12/19/17 07:10 Assess/Plan/Problems-Billing Assessment: Mr. Alves is a 57 year old male with PMH of COPD, umbilical hernia who presented to the [facility] ED on 11/12/17 with diarrhea and multiple falls and was found to have incarcerated bowel, and ROSALIA r/t GI bleed and was subsequently transferred to [facility] for dialysis. His stay at [facility] was further complicated by septic shock, GI hemorrhage, encephalopathy, acute respiratory failure requiring intubation, lung abscess, incarcerated umbilical hernia s/p resection and colostomy with high ostomy output leading to malnutrition. He was transferred back to [facility] on 12/12/17 swing status. - Patient Problems (1) Status post small bowel resection Comment: - Persistent problems with maintaining seal on ostomy appliance, have requested assistance wound care today. - Appreciate consult from Dr. Schultz to help with appliance and care of midline abd incision. Dr. Fortune recommends CT abd and pelvis, pending. (2) Lung abscess Comment: - Needs 4 weeks of ceftriaxone, done 12/28/17 (3) COPD (chronic obstructive pulmonary disease) Comment: - No evidence of exacerbation. - Continue dulera, spiriva, albuterol nebs PRN - Titrate oxygen (4) Moderate protein-calorie malnutrition Comment: - Plan for calorie counts and nutritional consult today. They note that he takes in about 3219-8371 calories and could reduce TPN to 12 hours a day only. - 2/2 short gut syndrome and high output ostomy - Encouarge high protein PO intake, no restrictions (5) DVT prophylaxis Comment: - Lovenox (6) Full code status Comment: Status and Disposition: Swing status for IV antibiotics and TPN.
--- NOTE | 2017-12-19 13:55 | PN ---
Progress Note - Progress Note Date of Service: 12/19/17 SOAP: Subjective: Without complaint Tolerating po Still with bilious drainage around ostomy site-seal cannot be kept Objective: Temp Pulse Resp BP Pulse Ox 97.6 F 78 20 112/53 93 12/19/17 06:47 12/19/17 08:09 12/19/17 12:16 12/19/17 06:47 12/19/17 08:09 PEX: Abd is soft and slightly distended Bowel sounds are present Ostomy in right mid-abdomen with thin green fluid in bag Leakage around the medial aspect Midline incision with significant irritation on skin surrounding it-red. Opening draining some turbid logan fluid, not pus --probes superior and inferior, approximately 4 cms deeps, 2-3 cms inf/sup. No odor Laboratory Results - last 24 hr 12/18/17 12/18/17 12/19/17 18:40 20:30 03:04 WBC RBC Hgb Hct MCV MCH MCHC RDW Plt Count MPV Neut % (Auto) Lymph % (Auto) Martin % (Auto) Eos % (Auto) Baso % (Auto) Absolute Neuts (auto) Absolute Lymphs (auto) Absolute Monos (auto) Absolute Eos (auto) Absolute Basos (auto) Absolute Nucleated RBC Nucleated RBC % Sodium Potassium Chloride Carbon Dioxide Anion Gap BUN Creatinine Est GFR ( Amer) Est GFR (Non-Af Amer) BUN/Creatinine Ratio Glucose POC Glucose (mg/dL) 180 H 143 H 145 H Calcium Total Bilirubin AST ALT Alkaline Phosphatase C-Reactive Protein Total Protein Albumin Globulin Albumin/Globulin Ratio 12/19/17 12/19/17 07:10 07:10 WBC 11.9 H RBC 3.09 L Hgb 8.8 L Hct 28 L MCV 89 MCH 28 MCHC 32 RDW 16 H Plt Count 324 MPV 6.9 L Neut % (Auto) 75.7 Lymph % (Auto) 12.9 L Martin % (Auto) 7.3 H Eos % (Auto) 3.3 Baso % (Auto) 0.8 Absolute Neuts (auto) 9.0 H Absolute Lymphs (auto) 1.5 Absolute Monos (auto) 0.9 H Absolute Eos (auto) 0.4 Absolute Basos (auto) 0.1 Absolute Nucleated RBC 0 Nucleated RBC % 0.1 Sodium 136 Potassium 4.3 Chloride 102 Carbon Dioxide 30 Anion Gap 4 BUN 17 Creatinine 0.66 L Est GFR ( Amer) 151.6 Est GFR (Non-Af Amer) 125.3 BUN/Creatinine Ratio 25.8 H Glucose 132 H POC Glucose (mg/dL) Calcium 8.6 Total Bilirubin 0.20 AST 14 ALT 18 Alkaline Phosphatase 89 C-Reactive Protein 13.96 H Total Protein 6.3 L Albumin 2.6 L Globulin 3.7 Albumin/Globulin Ratio 0.7 L Assessment: S/P ex lap with ileostomy at [facility]-persistent midline incisional opening with drainage. Difficulty with skin care and managing ostomy bag (unable to keep seal ) Plan: CT abd/pelvis to evaluate abdominal wound-rule out deeper extension, abscess- may need to be opened up and debrided. Hold on wound vac for now. Continue present wound care for now Wound center consult pending.
[2017-12-19] MEDS: cefTRIAXone(*) 2 GM in NS 0.9% 50 ML* 100 ML IVPB SCH (15:43)
[2017-12-19] MEDS ORDERED: Iohexol 300* (CONTRAST) 10 ML SDV IV ONE (16:43)
--- NOTE | 2017-12-19 18:02 | RAD ---
INDICATION: Draining abdominal wall wound. Recent GI surgery. COMPARISON: December 15, 2017 chest radiograph. TECHNIQUE: Multidetector CT images were obtained from the lung bases to the ischial tuberosities with 149 mL Omnipaque 300 IV and oral contrast. Multiplanar reformation. REPORT: VISUALIZED INFERIOR THORAX: RIGHT larger than LEFT small dependent pleural effusions with proportional basilar atelectasis without gross change. Additional consolidation at the RIGHT middle lobe. Basilar inflammatory infiltrates not entirely excluded. Small pericardial effusion. Negative for cardiomegaly. LIVER / GALLBLADDER / PANCREAS / SPLEEN: Borderline decreased density of the liver relative to the spleen favoring mild fatty infiltration. No focal hepatic lesion evident. No CT abnormality of the partially distended gallbladder. Unremarkable pancreas and spleen. ALIMENTARY TRACT: Distended stomach with air/contrast foodstuff fluid level. Transection of the colon at the splenic flexure with blind end. RIGHT lower quadrant colostomy. Severe diverticulosis of the descending and sigmoid colon without findings of acute diverticulitis. Only trace free intraperitoneal fluid. Negative for free air. No loculated intraperitoneal fluid collection evident. Postsurgical change of midline supraumbilical laparotomy. Gas within the subcutaneous tissue plane surgical cleft. At the midline and LEFT para midline supraumbilical ventral abdominal wall there is a 3 cm AP by 9.5 cm transverse by 7.0 cm cephalocaudal loculated fluid collection with a predominant thin peripheral enhancing margin. The differential includes postoperative seroma or hematoma as well as early abscess formation. No intra-articular gas within the collection to favor abscess. Surrounding subcutaneous tissue plane edema and subcutaneous emphysema. MESENTERIC: Inflammatory stranding at the omentum or residual omentum. ADRENAL / GENITOURINARY: Normal adrenal glands. Symmetric nephrograms and pyelograms. Negative for hydronephrosis. Cortical cyst upper pole LEFT kidney without concern. Unremarkable nondilated ureters and partially distended urinary bladder. Symmetric seminal vesicles. RETROPERITONEAL: Negative for lymphadenopathy based on short axis size criteria. VASCULAR: Normal diameter abdominal aorta and iliac arteries with mild atherosclerotic plaque. Physiologic distention of the IVC. BONES: Negative for suspicious osseous lesions. Polyarticular degenerative arthropathy. SOFT TISSUE: Unremarkable. IMPRESSION: #. Post colonic surgical changes as described with RIGHT lower quadrant colostomy. #. Postsurgical change of midline supraumbilical laparotomy. Gas within the subcutaneous tissue plane surgical cleft. At the midline and LEFT para midline supraumbilical ventral abdominal wall there is a 3 cm AP by 9.5 cm transverse by 7.0 cm cephalocaudal loculated fluid collection with a predominant thin peripheral enhancing margin. The differential includes postoperative seroma or hematoma as well as early abscess formation. No intra-articular gas within the collection to favor abscess. Surrounding subcutaneous tissue plane edema and subcutaneous emphysema. #. No intraperitoneal abscess collection evident. #. RIGHT larger than LEFT small dependent pleural effusions with proportional basilar atelectasis without gross change. Additional consolidation at the RIGHT middle lobe. Basilar inflammatory infiltrates not entirely excluded. #. Small pericardial effusion.
[2017-12-19] MEDS: TPN* 24 HR with Sodium Chloride Conc 23.4%* 100 MEQ, Potassium Chloride TPN 50 MEQ, Pot... CENT\\PICC SCH ×11 (18:30)
[2017-12-19] MEDS: Enoxaparin(*) 40 MG/0.4 ML SYR SUBCUT SCH (18:30)
[2017-12-20] MEDS: Tiotropium CAP.INH* CAP.INH/18 MCG (USE ORDER SET !) INH SCH (08:23)
[2017-12-20] MEDS: Mometasone/Formoter 100/5 MDI INH SCH ×2 (08:24→19:35)
[2017-12-20] MEDS: Diphenoxylat/Atrop 2.5-0.025M* 1 TAB PO SCH ×4 (10:31→23:00)
[2017-12-20] MEDS: Citalopram TAB* 40 MG PO SCH (10:32)
[2017-12-20] MEDS: Aspirin 81 mg CHEW TAB* 81 MG TAB.CHEW PO SCH (10:32)
[2017-12-20] MEDS: Nystatin TOP POWDER* 15 GM BTL TOPICAL SCH ×3 (10:34→23:00)
[2017-12-20] MEDS: cefTRIAXone(*) 2 GM in NS 0.9% 50 ML* 100 ML IVPB SCH (15:05)
[2017-12-20] MEDS: TPN* 24 HR with Sodium Chloride Conc 23.4%* 100 MEQ, Potassium Chloride TPN 50 MEQ, Pot... CENT\\PICC SCH ×11 (17:42)
[2017-12-20] MEDS: Enoxaparin(*) 40 MG/0.4 ML SYR SUBCUT SCH (17:43)
--- NOTE | 2017-12-20 18:02 | PN ---
Subjective Date of Service: 12/20/17 Interval History: no complaints, resting in bed , patient states that he is feeling better. Denies abd pain , n/v/d. Denies chest pain or shortness of breath. Family History: Unchanged from Admission Social History: Unchanged from Admission Past Medical History: Unchanged from Admission Objective Active Medications: Acetaminophen (Tylenol Tab*) 650 mg PO Q6HR PRN PRN Reason: PAIN Albuterol (Ventolin 2.5 Mg/3 Ml Neb.Gissel*) 2.5 mg INH Q4H PRN PRN Reason: wheeze or SOB Aspirin (Aspirin 81 Mg Chew Tab*) 81 mg PO DAILY [facility] Last Admin: 12/20/17 10:32 Dose: 81 mg Citalopram Hydrobromide (Celexa Tab*) 40 mg PO DAILY [facility] Last Admin: 12/20/17 10:32 Dose: 40 mg Device (Tiotropium Inhaler Device*) 1 each .SEE ORDER .USE w/ SPIRIVA CAPS [facility] Diphenoxylate HCl/Atropine (Lomotil Tab*) 2 tab PO QID ACHS [facility] Last Admin: 12/20/17 15:04 Dose: 2 tab Enoxaparin Sodium (Lovenox(*)) 40 mg SUBCUT Q24H [facility] Last Admin: 12/20/17 17:43 Dose: 40 mg Heparin Sodium (Porcine) (Heparin Flush Picc/Ml/Cvc(*)) 1 ml FLUSH 0600,1800 [facility]; Protocol Last Admin: 12/20/17 10:31 Dose: 1 ml Sodium Chloride 100 meq/Potassium Chloride 50 meq/Potassium Phosphate 15 mmole/ Calcium Gluconate 15 meq/Magnesium Sulfate 10 meq/Multivitamins 10 ml/ Trace Metals 1 ml/ Dextrose 1,000 ml / Amino Acids 1,000 ml/ Fat Emulsion Intravenous 250 ml/Nutrition (Parenteral) 2,350.721 mls @ 195.893 mls/hr CENT\PICC 1700 [facility] Last Admin: 12/20/17 17:42 Dose: 195.893 mls/hr Ceftriaxone Sodium 2 gm/ (Sodium Chloride) 100 mls @ 200 mls/hr IVPB Q24H [facility] Last Admin: 12/20/17 15:05 Dose: 200 mls/hr Mometasone Furoate/Formoterol Fumar (Dulera 100/5 Mdi*) 2 puff INH BID [facility] Last Admin: 12/20/17 08:24 Dose: 2 puff Nystatin (Nystatin Top Powder*) 1 applic TOPICAL TID [facility] Last Admin: 12/20/17 12:49 Dose: 1 applic Tiotropium [place] (Spiriva Cap.Inh*) 1 cap INH DAILY [facility] Last Admin: 12/20/17 08:23 Dose: 1 cap Vital Signs - 8 hr 12/20/17 12/20/17 12/20/17 10:31 12:21 15:04 Respiratory 18 16 20 Rate 12/20/17 17:15 Respiratory 16 Rate Oxygen Devices in Use Now: Nasal Cannula Appearance: appears comfortable restingin bed, no acute distress Eyes: No Scleral Icterus Ears/Nose/Mouth/Throat: Clear Oropharnyx, Mucous Membranes Moist Neck: NL Appearance and Movements; NL JVP, Trachea Midline Respiratory: Symmetrical Chest Expansion and Respiratory Effort, Clear to Auscultation Cardiovascular: NL Sounds; No Murmurs; No JVD, No Edema Abdominal: NL Sounds; No Tenderness; No Distention, - Extremities: No Edema, No Clubbing, Cyanosis Skin: No Rash or Ulcers Neurological: Alert and Oriented x 3 Nutrition: - - NPO - Nutrition: Malnutrition Diagnosis/Plan Malnutrition Assessment by Registered Dietitian: Malnutrition Assessment Clinical Characteristics Acute Malnutrition Assessment: - wt loss of 13% body wt within past three Criteria months - mild temporal muscle wasting per visual assessment Malnutrition Assessment: 1. [facility] soft diet textures d/t suboptimal Interventions dentition; pt in agreement 2. high calorie/high protein diet; encouragement of high protein snacks/ supplements 3. TPN w/modification for higher protein content (suggest 1000ml 10%AA in TPN) 4. Calorie Count 12/14; results and appropriate interventions 12/15 5. Follow colostomy output and replace electrolytes as appropriate Malnutrition Assessment: Goals 1. adequate nutrient delivery (parenteral + po ) to meet pt's estimated needs and maintain lean body mass and hydration status 2. surgical incision will show evidence of healing; no evidence of other skin breakdown 3. achieve and maintain serum electrolytes WNL Result Diagrams: 12/19/17 07:10 12/19/17 07:10 Assess/Plan/Problems-Billing Assessment: Mr. Alves is a 57 year old male with PMH of COPD, umbilical hernia who [place] [facility] [place] with diarrhea and multiple falls and was found to have incarcerated bowel, and ROSALIA r/t GI bleed and was subsequently transferred to [facility] for dialysis. His stay at [facility] was further complicated by septic shock, GI hemorrhage, encephalopathy, acute respiratory failure requiring intubation, lung abscess, incarcerated umbilical hernia s/p resection and colostomy with high ostomy output leading to malnutrition. He was [place] [facility] [place] swing status. - Patient Problems (1) Status post small bowel resection Current Visit: Yes Status: Acute Priority: High Code(s): Z90.49 - ACQUIRED ABSENCE OF OTHER SPECIFIED PARTS OF DIGESTIVE TRACT SNOMED Code(s): 300832152059990 Comment: - Persistent problems with maintaining seal on ostomy appliance, have requested assistance wound care today. - Appreciate consult from Dr. Schultz to help with appliance and care of midline abd incision. Dr. Fortune recommends CT abd and pelvis- completed No surgery needed - as per Dr. Schultz (2) COPD (chronic obstructive pulmonary disease) Current Visit: Yes Status: Acute Priority: Medium Code(s): J44.9 - CHRONIC OBSTRUCTIVE PULMONARY DISEASE, UNSPECIFIED SNOMED Code(s): 34349589 Comment: - No evidence of exacerbation. - Continue dulera, spiriva, albuterol nebs PRN - Titrate oxygen (3) Lung abscess Current Visit: Yes Status: Acute Priority: High Code(s): J85.2 - ABSCESS OF LUNG WITHOUT PNEUMONIA SNOMED Code(s): 96164701 Comment: - Needs 4 weeks of ceftriaxone, done 12/28/17 (4) Moderate protein-calorie malnutrition Current Visit: Yes Status: Acute Priority: High Code(s): E44.0 - MODERATE PROTEIN-CALORIE MALNUTRITION SNOMED Code(s): 598890033 Comment: - Plan for calorie counts and nutritional consult today. They note that he takes in about 9065-7105 calories and could reduce TPN to 12 hours a day only. - 2/2 short gut syndrome and high output ostomy - Encouarge high protein PO intake, no restrictions (5) DVT prophylaxis Current Visit: Yes Status: Acute Code(s): NJW4266 - SNOMED Code(s): 834698449 Comment: - Lovenox (6) Full code status Current Visit: Yes Status: Acute Priority: High Code(s): Z78.9 - OTHER SPECIFIED HEALTH STATUS SNOMED Code(s): 525344415 Comment: Status and Disposition: Swing status for IV antibiotics and TPN.
[2017-12-21] MEDS: Tiotropium CAP.INH* CAP.INH/18 MCG (USE ORDER SET !) INH SCH (07:32)
[2017-12-21] MEDS: Mometasone/Formoter 100/5 MDI INH SCH ×2 (07:33→19:57)
[2017-12-21] MEDS: Aspirin 81 mg CHEW TAB* 81 MG TAB.CHEW PO SCH (08:06)
[2017-12-21] MEDS: Citalopram TAB* 40 MG PO SCH (08:06)
[2017-12-21] MEDS: Diphenoxylat/Atrop 2.5-0.025M* 1 TAB PO SCH ×4 (08:21→22:18)
[2017-12-21] MEDS: Nystatin TOP POWDER* 15 GM BTL TOPICAL SCH ×3 (10:55→21:19)
[2017-12-21] MEDS: cefTRIAXone(*) 2 GM in NS 0.9% 50 ML* 100 ML IVPB SCH (15:28)
--- NOTE | 2017-12-21 17:34 | PN ---
Progress Note - Progress Note Date of Service: 12/21/17 SOAP: Subjective: Without complaint Objective: Temp Pulse Resp BP Pulse Ox 98.4 F 80 20 112/55 93 12/21/17 08:10 12/21/17 08:10 12/21/17 15:32 12/21/17 08:10 12/21/17 08:10 PEX: Abd is soft and non-distended. Skin irritation around midline is much improved. Ostomy with green fluid in bag Midline incision opening is draining clear fluid, probes at least 8-9 cms. Assessment: Fluid collection abd wall s/p exlap--don't think intra-abdominal extension or abscess Plan: Continue present wound and ostomy care Will place wound vac when white foam is available
[2017-12-21] MEDS: TPN* 24 HR with Sodium Chloride Conc 23.4%* 100 MEQ, Potassium Chloride TPN 50 MEQ, Pot... CENT\\PICC SCH ×11 (17:40)
[2017-12-21] MEDS: Enoxaparin(*) 40 MG/0.4 ML SYR SUBCUT SCH (17:40)
--- NOTE | 2017-12-21 20:42 | PN ---
Subjective Date of Service: 12/21/17 Interval History: no complaints . Patient reports that he is feeling better. Denies abd pain pain, n/v. Ostomy with green output. denies fever or chills. denies chest pain or shortness of breath. Family History: Unchanged from Admission Social History: Unchanged from Admission Past Medical History: Unchanged from Admission Objective Active Medications: Acetaminophen (Tylenol Tab*) 650 mg PO Q6HR PRN PRN Reason: PAIN Albuterol (Ventolin 2.5 Mg/3 Ml Neb.Gissel*) 2.5 mg INH Q4H PRN PRN Reason: wheeze or SOB Aspirin (Aspirin 81 Mg Chew Tab*) 81 mg PO DAILY [facility] Last Admin: 12/21/17 08:06 Dose: 81 mg Citalopram Hydrobromide (Celexa Tab*) 40 mg PO DAILY [facility] Last Admin: 12/21/17 08:06 Dose: 40 mg Device (Tiotropium Inhaler Device*) 1 each .SEE ORDER .USE w/ SPIRIVA CAPS [facility] Diphenoxylate HCl/Atropine (Lomotil Tab*) 2 tab PO QID ACHS [facility] Last Admin: 12/21/17 15:32 Dose: 2 tab Enoxaparin Sodium (Lovenox(*)) 40 mg SUBCUT Q24H [facility] Last Admin: 12/21/17 17:40 Dose: 40 mg Heparin Sodium (Porcine) (Heparin Flush Picc/Ml/Cvc(*)) 1 ml FLUSH 0600,1800 [facility]; Protocol Last Admin: 12/21/17 17:40 Dose: 1 ml Sodium Chloride 100 meq/Potassium Chloride 50 meq/Potassium Phosphate 15 mmole/ Calcium Gluconate 15 meq/Magnesium Sulfate 10 meq/Multivitamins 10 ml/ Trace Metals 1 ml/ Dextrose 1,000 ml / Amino Acids 1,000 ml/ Fat Emulsion Intravenous 250 ml/Nutrition (Parenteral) 2,350.721 mls @ 195.893 mls/hr CENT\PICC 1700 [facility] Last Admin: 12/21/17 17:40 Dose: 195.893 mls/hr Ceftriaxone Sodium 2 gm/ (Sodium Chloride) 100 mls @ 200 mls/hr IVPB Q24H [facility] Stop: 12/28/17 18:00 Last Admin: 12/21/17 15:28 Dose: 200 mls/hr Mometasone Furoate/Formoterol Fumar (Dulera 100/5 Mdi*) 2 puff INH BID [facility] Last Admin: 12/21/17 19:57 Dose: 2 puff Nystatin (Nystatin Top Powder*) 1 applic TOPICAL TID [facility] Last Admin: 12/21/17 12:00 Dose: 1 applic Tiotropium [place] (Spiriva Cap.Inh*) 1 cap INH DAILY [facility] Last Admin: 12/21/17 07:32 Dose: 1 cap Vital Signs - 8 hr 12/21/17 12/21/17 12/21/17 14:00 15:32 18:21 Pulse Rate Respiratory 20 20 16 Rate O2 Sat by Pulse Oximetry 12/21/17 20:00 Pulse Rate 92 Respiratory 18 Rate O2 Sat by Pulse 91 Oximetry Oxygen Devices in Use Now: Nasal Cannula Appearance: appears comfortable resting in bed. no acute distress Eyes: No Scleral Icterus Ears/Nose/Mouth/Throat: Clear Oropharnyx, Mucous Membranes Moist Neck: NL Appearance and Movements; NL JVP, Trachea Midline Respiratory: Symmetrical Chest Expansion and Respiratory Effort, Clear to Auscultation Cardiovascular: NL Sounds; No Murmurs; No JVD, No Edema Abdominal: NL Sounds; No Tenderness; No Distention Extremities: No Edema, No Clubbing, Cyanosis Skin: No Rash or Ulcers, - - ostomy is pink , appliance is intact. dressing intact to abd - see surgery note Neurological: Alert and Oriented x 3 Nutrition: Taking PO's - Nutrition: Malnutrition Diagnosis/Plan Malnutrition Assessment by Registered Dietitian: Malnutrition Assessment Clinical Characteristics Acute Malnutrition Assessment: - wt loss of 13% body wt within past three Criteria months - mild temporal muscle wasting per visual assessment Malnutrition Assessment: 1. [facility] soft diet textures d/t suboptimal Interventions dentition; pt in agreement 2. high calorie/high protein diet; encouragement of high protein snacks/ supplements 3. TPN w/modification for higher protein content (suggest 1000ml 10%AA in TPN) 4. Calorie Count 12/14; results and appropriate interventions 12/15 5. Follow colostomy output and replace electrolytes as appropriate Malnutrition Assessment: Goals 1. adequate nutrient delivery (parenteral + po ) to meet pt's estimated needs and maintain lean body mass and hydration status 2. surgical incision will show evidence of healing; no evidence of other skin breakdown 3. achieve and maintain serum electrolytes WNL Result Diagrams: 12/22/17 05:34 12/23/17 05:42 Assess/Plan/Problems-Billing Assessment: Mr. Alves is a 57 year old male with PMH of COPD, umbilical hernia who [place] [facility] [place] on [place]12/17 with diarrhea and multiple falls and was found to have incarcerated bowel, and ROSALIA r/t GI bleed and was subsequently transferred to [facility] for dialysis. His stay at [facility] was further complicated by septic shock, GI hemorrhage, encephalopathy, acute respiratory failure requiring intubation, lung abscess, incarcerated umbilical hernia s/p resection and colostomy with high ostomy output leading to malnutrition. He was transferred back [place] [facility] on 12/12/17 swing status. - Patient Problems (1) Status post small bowel resection Current Visit: Yes Status: Acute Priority: High Code(s): Z90.49 - ACQUIRED ABSENCE OF OTHER SPECIFIED PARTS OF DIGESTIVE TRACT SNOMED Code(s): 970545547348962 Comment: - Persistent problems with maintaining seal on ostomy appliance, have requested assistance wound care today. - Appreciate consult from Dr. Schultz to help with appliance and care of midline abd incision. Dr. Fortune ; CT abd and pelvis- completed - surgery does not feel the abd collection is related to an abscess- will place wound vac (2) COPD (chronic obstructive pulmonary disease) Current Visit: Yes Status: Acute Priority: Medium Code(s): J44.9 - CHRONIC OBSTRUCTIVE PULMONARY DISEASE, UNSPECIFIED SNOMED Code(s): 64333678 Comment: - No evidence of exacerbation. - Continue dulera, spiriva, albuterol nebs PRN - Titrate oxygen as needed (3) Lung abscess Current Visit: Yes Status: Acute Priority: High Code(s): J85.2 - ABSCESS OF LUNG WITHOUT PNEUMONIA SNOMED Code(s): 01467555 Comment: - Needs 4 weeks of ceftriaxone, done 12/28/17 (4) Moderate protein-calorie malnutrition Current Visit: Yes Status: Acute Priority: High Code(s): E44.0 - MODERATE PROTEIN-CALORIE MALNUTRITION SNOMED Code(s): 347576586 Comment: - Plan for calorie counts and nutritional consult today. They note that he takes in about 8362-8298 calories and could reduce TPN to 12 hours a day only.- will continue TPN through the and reassess benjamín. - 2/2 short gut syndrome and high output ostomy - Encouarge high protein PO intake, no restrictions (5) DVT prophylaxis Current Visit: Yes Status: Acute Code(s): SJT3005 - SNOMED Code(s): 370280051 Comment: - [place] (6) Full code status Current Visit: Yes Status: Acute Priority: High Code(s): Z78.9 - OTHER SPECIFIED HEALTH STATUS SNOMED Code(s): 776091143 Comment: Status and Disposition: Swing status for IV antibiotics and TPN.
[2017-12-22 06:01] LABS: ABS Basophils 0.1 10^3/ul (0-0.2); ABS Eosinophils 0.6 10^3/ul (0-0.6); ABS Lymphocytes 1.5 10^3/ul (1.0-4.8); ABS Neutrophils 8.1 10^3/ul (1.5-7.7); ABS Nucleated RBC 0 10^3/ul; Eosinophil % 5.6 % (0-6); Hematocrit 28 % (42-52); Hemoglobin 8.9 g/dl (14.0-18.0); Lymphocyte % 13.6 % (25-47); Mean Corpuscular HGB Conc 32 g/dl (31-36); Mean Corpuscular Hemoglobin 28 pg (27-31); Mean Corpuscular Volume 88 fL (80-94); Mean Platelet Volume 7.5 um3 (7.4-10.4); Nucleated Red Blood Cells % 0; Platelet Count 349 10^3/ul (150-450); Red Blood Count 3.17 10^6/ul (4.00-5.40); Red Cell Distribution Width 16 % (10.5-15); White Blood Count 11.3 10^3/ul (3.5-10.8)
[2017-12-22 06:09] LABS: EGFR Non-African American 127.5 (>60)
[2017-12-22] MEDS: Mometasone/Formoter 100/5 MDI INH SCH ×2 (07:39→19:45)
[2017-12-22] MEDS: Tiotropium CAP.INH* CAP.INH/18 MCG (USE ORDER SET !) INH SCH (07:40)
[2017-12-22] MEDS: Citalopram TAB* 40 MG PO SCH (07:56)
[2017-12-22] MEDS: Diphenoxylat/Atrop 2.5-0.025M* 1 TAB PO SCH ×4 (07:56→21:43)
[2017-12-22] MEDS: Aspirin 81 mg CHEW TAB* 81 MG TAB.CHEW PO SCH (07:56)
[2017-12-22] MEDS: Nystatin TOP POWDER* 15 GM BTL TOPICAL SCH ×3 (07:56→22:13)
--- NOTE | 2017-12-22 09:40 | PN ---
Progress Note - Progress Note Date of Service: 12/22/17 Note: Surgery Progress: S: "feel great" Denies abd pain, nausea, vomiting. States that the current ostomy appliance has lasted the longest thus far of any recent ones. Current Medications Acetaminophen (Tylenol Tab*) 650 mg PO Q6HR PRN PRN Reason: PAIN Albuterol (Ventolin 2.5 Mg/3 Ml Neb.Gissel*) 2.5 mg INH Q4H PRN PRN Reason: wheeze or SOB Aspirin (Aspirin 81 Mg Chew Tab*) 81 mg PO DAILY [facility] Last Admin: 12/22/17 07:56 Dose: 81 mg Citalopram Hydrobromide (Celexa Tab*) 40 mg PO DAILY [facility] Last Admin: 12/22/17 07:56 Dose: 40 mg Device (Tiotropium Inhaler Device*) 1 each .SEE ORDER .USE w/ SPIRIVA CAPS [facility] Diphenoxylate HCl/Atropine (Lomotil Tab*) 2 tab PO QID ACHS [facility] Last Admin: 12/22/17 07:56 Dose: 2 tab Enoxaparin Sodium (Lovenox(*)) 40 mg SUBCUT Q24H [facility] Last Admin: 12/21/17 17:40 Dose: 40 mg Heparin Sodium (Porcine) (Heparin Flush Picc/Ml/Cvc(*)) 1 ml FLUSH 0600,1800 [facility]; Protocol Last Admin: 12/22/17 05:35 Dose: 1 ml Sodium Chloride 100 meq/Potassium Chloride 50 meq/Potassium Phosphate 15 mmole/ Calcium Gluconate 15 meq/Magnesium Sulfate 10 meq/Multivitamins 10 ml/ Trace Metals 1 ml/ Dextrose 1,000 ml / Amino Acids 1,000 ml/ Fat Emulsion Intravenous 250 ml/Nutrition (Parenteral) 2,350.721 mls @ 195.893 mls/hr CENT\\PICC 1700 [facility] Last Admin: 12/21/17 17:40 Dose: 195.893 mls/hr Ceftriaxone Sodium 2 gm/ (Sodium Chloride) 100 mls @ 200 mls/hr IVPB Q24H [facility] Stop: 12/28/17 18:00 Last Admin: 12/21/17 15:28 Dose: 200 mls/hr Mometasone Furoate/Formoterol Fumar (Dulera 100/5 Mdi*) 2 puff INH BID [facility] Last Admin: 12/22/17 07:39 Dose: 2 puff Nystatin (Nystatin Top Powder*) 1 applic TOPICAL TID [facility] Last Admin: 12/22/17 07:56 Dose: 1 applic Tiotropium [place] (Spiriva Cap.Inh*) 1 cap INH DAILY [facility] Last Admin: 12/22/17 07:40 Dose: 1 cap O: Vital Signs - 8 hr 12/22/17 12/22/17 07:40 07:56 Pulse Rate 81 Respiratory 18 18 Rate O2 Sat by Pulse 90 Oximetry Intake and Output Last 24 Hours 12/20/17 12/21/17 12/22/17 12/23/17 06:59 06:59 06:59 06:59 Intake Total 3699 2907 2769 Output Total 6393 633 8376 Balance 2274 2057 554 Weight 236 lb 11.2 oz 241 lb 9.6 oz 240 lb 11.2 oz Intake: IV Fluids 25 NS 25 IVPB 110 ceftriaxone 110 Medicated IV 9 2372 TPN 9 2372 TPN/PPN 700 1829 Oral 960 400 940 Output: Urine 0267 409 4968 Liquid Stool 365 Colostomy 50 150 350 Ileostomy 350 250 Other: Estimated Void Large # Bowel Movements 0 Estimated Stool Amount Small # Voids 1 Gen: NAD Abd: soft, nontender. There is some leakage under the ostomy appliance (nsg will change). The midline wound (~ 1.5 cm diameter w/ 6-7 cm depth) has a small amount of drainage on the cover dressing. Upon removal of the aquacel there is add'l cloudy yellow drainage expressible. The wound was irrigated w/ NS. Nsg will replace aquacel rope pkg. A/P: wound as above; poss VAC placement 12/23?
[2017-12-22] MEDS: cefTRIAXone(*) 2 GM in NS 0.9% 50 ML* 100 ML IVPB SCH (15:53)
[2017-12-22] MEDS: Enoxaparin(*) 40 MG/0.4 ML SYR SUBCUT SCH (16:48)
[2017-12-22] MEDS: TPN* 24 HR with Sodium Chloride Conc 23.4%* 100 MEQ, Potassium Chloride TPN 50 MEQ, Pot... CENT\\PICC SCH ×11 (16:51)
[2017-12-23 06:15] LABS: EGFR Non-African American 137.2 (>60)
[2017-12-23] MEDS: Diphenoxylat/Atrop 2.5-0.025M* 1 TAB PO SCH ×4 (08:01→20:26)
[2017-12-23] MEDS: Citalopram TAB* 40 MG PO SCH (08:02)
[2017-12-23] MEDS: Aspirin 81 mg CHEW TAB* 81 MG TAB.CHEW PO SCH (08:02)
[2017-12-23] MEDS: Nystatin TOP POWDER* 15 GM BTL TOPICAL SCH ×3 (08:07→20:27)
[2017-12-23] MEDS: Tiotropium CAP.INH* CAP.INH/18 MCG (USE ORDER SET !) INH SCH (08:38)
[2017-12-23] MEDS: Mometasone/Formoter 100/5 MDI INH SCH ×2 (08:39→20:11)
[2017-12-23] MEDS ORDERED: Magnesium Sulfate 2 GM IV* 2 GM/50 ML BAG IVPB ONE (11:01)
--- NOTE | 2017-12-23 11:43 | PN ---
Progress Note - Progress Note Date of Service: 12/23/17 SOAP: Subjective: Without complaint No abdominal pain Objective: Temp Pulse Resp BP Pulse Ox 98.0 F 88 16 168/64 92 12/22/17 09:21 12/23/17 08:42 12/23/17 08:42 12/23/17 09:44 12/23/17 08:42 PEX: Abd soft and non-distended. Bowel sounds are present. Cloudy profuse drainage from midline. No bile or pus. Wound vac placed--white foam at base and then black foam. To 125 Hg suction Assessment: Open wound s/p laparotomy Plan: Wound vac Ostomy care Continue present care.
[2017-12-23] MEDS: cefTRIAXone(*) 2 GM in NS 0.9% 50 ML* 100 ML IVPB SCH (15:04)
[2017-12-23] MEDS: Enoxaparin(*) 40 MG/0.4 ML SYR SUBCUT SCH (17:15)
[2017-12-23] MEDS: TPN* 24 HR with Sodium Chloride Conc 23.4%* 100 MEQ, Potassium Chloride TPN 50 MEQ, Pot... CENT\\PICC SCH ×11 (17:15)
--- NOTE | 2017-12-23 18:18 | PN ---
Hospitalist Progress Note Date of Service: 12/23/17 lab work reviewed, ordered as part of TPN panel. Magnesium was low and magnesium IV was ordered for replacement.
[2017-12-24] MEDS: Tiotropium CAP.INH* CAP.INH/18 MCG (USE ORDER SET !) INH SCH (07:30)
[2017-12-24] MEDS: Mometasone/Formoter 100/5 MDI INH SCH ×2 (07:31→21:12)
[2017-12-24] MEDS: Aspirin 81 mg CHEW TAB* 81 MG TAB.CHEW PO SCH (07:46)
[2017-12-24] MEDS: Diphenoxylat/Atrop 2.5-0.025M* 1 TAB PO SCH ×4 (07:46→20:27)
[2017-12-24] MEDS: Citalopram TAB* 40 MG PO SCH (07:46)
[2017-12-24] MEDS: Nystatin TOP POWDER* 15 GM BTL TOPICAL SCH ×3 (07:47→20:28)
[2017-12-24] MEDS: TPN* 24 HR with Sodium Chloride Conc 23.4%* 100 MEQ, Potassium Chloride TPN 50 MEQ, Pot... CENT\\PICC SCH ×11 (16:45)
[2017-12-24] MEDS: cefTRIAXone(*) 2 GM in NS 0.9% 50 ML* 100 ML IVPB SCH (16:45)
[2017-12-24] MEDS: Enoxaparin(*) 40 MG/0.4 ML SYR SUBCUT SCH (17:01)
[2017-12-25] MEDS: Mometasone/Formoter 100/5 MDI INH SCH ×2 (07:22→21:41)
[2017-12-25] MEDS: Tiotropium CAP.INH* CAP.INH/18 MCG (USE ORDER SET !) INH SCH (07:22)
[2017-12-25] MEDS: Aspirin 81 mg CHEW TAB* 81 MG TAB.CHEW PO SCH (07:23)
[2017-12-25] MEDS: Citalopram TAB* 40 MG PO SCH (07:23)
[2017-12-25] MEDS: Diphenoxylat/Atrop 2.5-0.025M* 1 TAB PO SCH ×4 (07:23→21:40)
[2017-12-25] MEDS: Nystatin TOP POWDER* 15 GM BTL TOPICAL SCH ×3 (07:24→21:39)
[2017-12-25] MEDS: cefTRIAXone(*) 2 GM in NS 0.9% 50 ML* 100 ML IVPB SCH (15:46)
[2017-12-25] MEDS: Enoxaparin(*) 40 MG/0.4 ML SYR SUBCUT SCH (17:34)
[2017-12-25] MEDS: TPN* 24 HR with Sodium Chloride Conc 23.4%* 100 MEQ, Potassium Chloride TPN 50 MEQ, Pot... CENT\\PICC SCH ×11 (17:45)
[2017-12-26] MEDS: Tiotropium CAP.INH* CAP.INH/18 MCG (USE ORDER SET !) INH SCH (08:05)
[2017-12-26] MEDS: Mometasone/Formoter 100/5 MDI INH SCH ×2 (08:05→19:37)
[2017-12-26] MEDS: Diphenoxylat/Atrop 2.5-0.025M* 1 TAB PO SCH ×4 (09:15→21:19)
[2017-12-26] MEDS: Citalopram TAB* 40 MG PO SCH (09:16)
[2017-12-26] MEDS: Nystatin TOP POWDER* 15 GM BTL TOPICAL SCH ×3 (09:16→21:20)
[2017-12-26] MEDS: Aspirin 81 mg CHEW TAB* 81 MG TAB.CHEW PO SCH (09:16)
--- NOTE | 2017-12-26 11:15 | PN ---
Subjective Date of Service: 12/26/17 Interval History: Mr. Alves reports feeling well today and denies complaint other than hoping for discharge soon. He denies chest pain, SOB, nausea, or abdominal pain. Family History: Unchanged from Admission Social History: Unchanged from Admission Past Medical History: Unchanged from Admission Objective Active Medications: Acetaminophen (Tylenol Tab*) 650 mg PO Q6HR PRN Albuterol (Ventolin 2.5 Mg/3 Ml Neb.Gissel*) 2.5 mg INH Q4H PRN Aspirin (Aspirin 81 Mg Chew Tab*) 81 mg PO DAILY JESSICA Citalopram Hydrobromide (Celexa Tab*) 40 mg PO DAILY JESSICA Device (Tiotropium Inhaler Device*) 1 each .SEE ORDER .USE w/ SPIRIVA CAPS JESSICA Diphenoxylate HCl/Atropine (Lomotil Tab*) 2 tab PO QID ACHS JESSICA Enoxaparin Sodium (Lovenox(*)) 40 mg SUBCUT Q24H JESSICA Heparin Sodium (Porcine) (Heparin Flush Picc/Ml/Cvc(*)) 1 ml FLUSH 0600,1800 JESSICA; Protocol Sodium Chloride 100 meq/Potassium Chloride 50 meq/Potassium Phosphate 15 mmole/ Calcium Gluconate 15 meq/Magnesium Sulfate 10 meq/Multivitamins 10 ml/ Trace Metals 1 ml/ Dextrose 1,000 ml / Amino Acids 1,000 ml/ Fat Emulsion Intravenous 250 ml/Nutrition (Parenteral) 2,350.721 mls @ 195.893 mls/hr CENT\PICC 1700 JESSICA Ceftriaxone Sodium 2 gm/ (Sodium Chloride) 100 mls @ 200 mls/hr IVPB Q24H JESSICA Mometasone Furoate/Formoterol Fumar (Dulera 100/5 Mdi*) 2 puff INH BID JESSICA Nystatin (Nystatin Top Powder*) 1 applic TOPICAL TID JESSICA Tiotropium [place] (Spiriva Cap.Inh*) 1 cap INH DAILY JESSICA Vital Signs: Temp Pulse Resp BP Pulse Ox 98.1 F 79 22 112/60 92 12/25/17 07:56 12/26/17 08:07 12/26/17 09:15 12/25/17 07:56 12/26/17 08:07 Oxygen Devices in Use Now: None Appearance: Male lying in bed in NAD Eyes: No Scleral Icterus Ears/Nose/Mouth/Throat: Mucous Membranes Moist Neck: Trachea Midline Respiratory: Symmetrical Chest Expansion and Respiratory Effort, Clear to Auscultation Cardiovascular: NL Sounds; No Murmurs; No JVD, No Edema Abdominal: NL Sounds; No Tenderness; No Distention Skin: - - Less erythema and excortiation around colostomy appliance, persistent opening to midline incision, packing in situ Neurological: Alert and Oriented x 3, NL Muscle Strength and Tone Nutrition: Taking PO's - Nutrition: Malnutrition Diagnosis/Plan Malnutrition Assessment by Registered Dietitian: Malnutrition Assessment Clinical Characteristics Acute Malnutrition Assessment: - wt loss of 13% body wt within past three Criteria months - mild temporal muscle wasting per visual assessment Malnutrition Assessment: 1. [facility] soft diet textures d/t suboptimal Interventions dentition; pt in agreement 2. high calorie/high protein diet; encouragement of high protein snacks/ supplements 3. TPN w/modification for higher protein content (suggest 1000ml 10%AA in TPN) 4. Calorie Count 12/14; results and appropriate interventions 12/15 5. Follow colostomy output and replace electrolytes as appropriate Malnutrition Assessment: Goals 1. adequate nutrient delivery (parenteral + po ) to meet pt's estimated needs and maintain lean body mass and hydration status 2. surgical incision will show evidence of healing; no evidence of other skin breakdown 3. achieve and maintain serum electrolytes WNL Result Diagrams: 12/22/17 05:34 12/23/17 05:42 Assess/Plan/Problems-Billing Assessment: Mr. Alves is a 57 year old male with PMH of COPD, umbilical hernia who presented to the [facility] on 11/12/17 with diarrhea and multiple falls and was found to have incarcerated bowel, and ROSALIA r/t GI bleed and was subsequently transferred to [facility] for dialysis. His stay at [facility] was further complicated by septic shock, GI hemorrhage, encephalopathy, acute respiratory failure requiring intubation, lung abscess, incarcerated umbilical hernia s/p resection and colostomy with high ostomy output leading to malnutrition. He was transferred back to [facility] on 12/12/17 swing status. - Patient Problems (1) Status post small bowel resection Comment: - Appreciate consult from surgery. CT abd and pelvis- completed - surgery does not feel the abd collection is related to an abscess. - Wound vac removed as it was not functioning properly, Dr. Fortune to examine today. Skin healing well around ostomy as seal of appliance has greatly improved. (2) Moderate protein-calorie malnutrition Comment: - Appreciate calorie counts and nutritional consult. Plan to d/c TPN tomorrow. - 2/2 short gut syndrome and high output ostomy - Encouarge high protein PO intake, no restrictions (3) Lung abscess Comment: - Needs 4 weeks of ceftriaxone, done 12/28/17 (4) COPD (chronic obstructive pulmonary disease) Comment: - No evidence of exacerbation. - Continue dulera, spiriva, albuterol nebs PRN - Titrate oxygen as needed (5) DVT prophylaxis Comment: - Lovenox (6) Full code status Comment: Status and Disposition: Swing status for IV antibiotics and TPN.
--- NOTE | 2017-12-26 13:51 | PN ---
Progress Note - Progress Note Date of Service: 12/26/17 SOAP: Subjective: Without complaint-wants to go home Wound VAC did not keep seal and was d/c'd over the weekend. Objective: Temp Pulse Resp BP Pulse Ox 97.8 F 79 12 109/49 92 12/26/17 07:37 12/26/17 08:07 12/26/17 12:38 12/26/17 07:37 12/26/17 08:07 PEX: Ostomy--bag with green fluid, some surrounding skin irritation Midline opening at incision is clean-exposed biologic mesh noted now, less drainage. No bilious drainage. Surrounding skin much less irritation. Assessment: Midline open wound at site of recent laparotomy with SB and colon resection at [facility] Plan: Will switch back to daily wet to dry dressings-wound appears to be improving, unable to keep seal on wound vac
[2017-12-26] MEDS: Enoxaparin(*) 40 MG/0.4 ML SYR SUBCUT SCH (16:06)
[2017-12-26] MEDS: cefTRIAXone(*) 2 GM in NS 0.9% 50 ML* 100 ML IVPB SCH (16:07)
[2017-12-26] MEDS: TPN* 24 HR with Sodium Chloride Conc 23.4%* 100 MEQ, Potassium Chloride TPN 50 MEQ, Pot... CENT\\PICC SCH ×11 (17:09)
[2017-12-27 06:42] LABS: Hematocrit 30 % (42-52); Hemoglobin 9.7 g/dl (14.0-18.0); Mean Corpuscular HGB Conc 32 g/dl (31-36); Mean Corpuscular Hemoglobin 28 pg (27-31); Mean Corpuscular Volume 89 fL (80-94); Mean Platelet Volume 7.4 um3 (7.4-10.4); Platelet Count 343 10^3/ul (150-450); Red Blood Count 3.41 10^6/ul (4.00-5.40); Red Cell Distribution Width 17 % (10.5-15); White Blood Count 10.8 10^3/ul (3.5-10.8)
[2017-12-27 07:05] LABS: EGFR Non-African American 129.8 (>60)
[2017-12-27] MEDS: Aspirin 81 mg CHEW TAB* 81 MG TAB.CHEW PO SCH (08:17)
[2017-12-27] MEDS: Diphenoxylat/Atrop 2.5-0.025M* 1 TAB PO SCH ×4 (08:18→20:19)
[2017-12-27] MEDS: Citalopram TAB* 40 MG PO SCH (08:18)
[2017-12-27] MEDS: Mometasone/Formoter 100/5 MDI INH SCH ×2 (09:12→19:33)
[2017-12-27] MEDS: Tiotropium CAP.INH* CAP.INH/18 MCG (USE ORDER SET !) INH SCH (09:12)
--- NOTE | 2017-12-27 12:49 | PN ---
Subjective Date of Service: 12/27/17 Interval History: Mr. Sanchez denies complaint and is eager for discharge to home tomorrow. Family History: Unchanged from Admission Social History: Unchanged from Admission Past Medical History: Unchanged from Admission Objective Active Medications: Acetaminophen (Tylenol Tab*) 650 mg PO Q6HR PRN Albuterol (Ventolin 2.5 Mg/3 Ml Neb.Gissel*) 2.5 mg INH Q4H PRN Aspirin (Aspirin 81 Mg Chew Tab*) 81 mg PO DAILY JESSICA Citalopram Hydrobromide (Celexa Tab*) 40 mg PO DAILY JESSICA Device (Tiotropium Inhaler Device*) 1 each .SEE ORDER .USE w/ SPIRIVA CAPS JESSICA Diphenoxylate HCl/Atropine (Lomotil Tab*) 2 tab PO QID ACHS JESSICA Enoxaparin Sodium (Lovenox(*)) 40 mg SUBCUT Q24H JESSICA Heparin Sodium (Porcine) (Heparin Flush Picc/Ml/Cvc(*)) 1 ml FLUSH 0600,1800 JESSICA; Protocol Ceftriaxone Sodium 2 gm/ (Sodium Chloride) 100 mls @ 200 mls/hr IVPB Q24H JESSICA Tiotropium [place] (Spiriva Cap.Inh*) 1 cap INH DAILY JESSICA Vital Signs: Temp Pulse Resp BP Pulse Ox 97.8 F 83 14 109/49 92 12/26/17 07:37 12/27/17 09:14 12/27/17 10:55 12/26/17 07:37 12/27/17 09:14 Oxygen Devices in Use Now: None Appearance: Male sitting up in bed in NAD Eyes: No Scleral Icterus Ears/Nose/Mouth/Throat: Mucous Membranes Moist Neck: Trachea Midline Respiratory: Symmetrical Chest Expansion and Respiratory Effort, Clear to Auscultation Cardiovascular: NL Sounds; No Murmurs; No JVD, No Edema Abdominal: NL Sounds; No Tenderness; No Distention, - - abd incision with midline opening, with packing, no drainage. Stoma pink and beefy, liquid stool in colostomy Extremities: No Edema Neurological: Alert and Oriented x 3, NL Muscle Strength and Tone Nutrition: Taking PO's - Nutrition: Malnutrition Diagnosis/Plan Malnutrition Assessment by Registered Dietitian: Malnutrition Assessment Clinical Characteristics Acute Malnutrition Assessment: - wt loss of 13% body wt within past three Criteria months - mild temporal muscle wasting per visual assessment Malnutrition Assessment: 1. [facility] soft diet textures d/t suboptimal Interventions dentition; pt in agreement 2. high calorie/high protein diet; encouragement of high protein snacks/ supplements 3. TPN w/modification for higher protein content (suggest 1000ml 10%AA in TPN) 4. Calorie Count 12/14; results and appropriate interventions 12/15 5. Follow colostomy output and replace electrolytes as appropriate Malnutrition Assessment: Goals 1. adequate nutrient delivery (parenteral + po ) to meet pt's estimated needs and maintain lean body mass and hydration status 2. surgical incision will show evidence of healing; no evidence of other skin breakdown 3. achieve and maintain serum electrolytes WNL Result Diagrams: 12/27/17 05:45 12/27/17 05:45 Assess/Plan/Problems-Billing Assessment: Mr. Alves is a 57 year old male with PMH of COPD, umbilical hernia who presented to the [facility] ED on 11/12/17 with diarrhea and multiple falls and was found to have incarcerated bowel, and ROSALIA r/t GI bleed and was subsequently transferred to [facility] for dialysis. His stay at [facility] was further complicated by septic shock, GI hemorrhage, encephalopathy, acute respiratory failure requiring intubation, lung abscess, incarcerated umbilical hernia s/p resection and colostomy with high ostomy output leading to malnutrition. He was transferred back to [facility] on 12/12/17 swing status. - Patient Problems (1) Status post small bowel resection Comment: - Appreciate consult from surgery. CT abd and pelvis- completed - surgery does not feel the abd collection is related to an abscess. - Plan for continued packing to midline abd incisional opening with wet to dry dressing. Patient will need VNS for help with this and with colostomy management. Patient referred to wound clinic and placed on wait list as there are no current openings. Will follow [facility] at [facility] until a spot is available at wound care. (2) Moderate protein-calorie malnutrition Comment: - Appreciate calorie counts and nutritional consult. TPN stopped. - 2/2 short gut syndrome and high output ostomy - Encouarge high protein PO intake, no restrictions (3) Lung abscess Comment: - Needs 4 weeks of ceftriaxone, done 12/28/17 - Dr. Dennis recommends chest xray today and will advise if further po antibiotics are needed. (4) COPD (chronic obstructive pulmonary disease) Comment: - No evidence of exacerbation. - Continue dulera, spiriva, albuterol nebs PRN - Titrate oxygen as needed (5) DVT prophylaxis Comment: - Lovenox (6) Full code status Comment: Status and Disposition: Anticipate discharge to home tomorrow.
[2017-12-27] MEDS: cefTRIAXone(*) 2 GM in NS 0.9% 50 ML* 100 ML IVPB SCH (15:21)
--- NOTE | 2017-12-27 15:43 | RAD ---
HISTORY: F/U lung abcess COMPARISONS: December 15, 2017, CT dated December 20, 2019 VIEWS: 6: Frontal dual-energy and lateral views of the chest. FINDINGS: CARDIOMEDIASTINAL SILHOUETTE: The cardiomediastinal silhouette is normal. ARNAUD: The arnaud are normal. PLEURA: The costophrenic angles are sharp. No pleural abnormalities are noted. LUNG PARENCHYMA: There is a rounded nodular density within the right middle lobe measuring approximately 3.6 x 2.1 x 2.8 cm in size. ABDOMEN: The upper abdomen is clear. There is no subphrenic gas. BONES AND SOFT TISSUES: No bone or soft tissue abnormalities are noted. OTHER: A right-sided PICC line is noted with the tip overlying the cavoatrial junction. IMPRESSION: THERE IS A 3.6 CM ROUNDED NODULE WITHIN THE RIGHT MIDDLE LOBE ON EARLY ABSCESS, THIS MAY REPRESENT RESIDUAL ABSCESS. SOLID PARENCHYMAL NEOPLASM IS ALSO WITHIN THE DIFFERENTIAL. RECOMMEND CONSIDERATION OF FURTHER EVALUATION WITH CONTRAST-ENHANCED CT OF THE CHEST OR FOLLOW-UP UNTIL RESOLUTION TO EXCLUDE UNDERLYING PULMONARY PARENCHYMAL PATHOLOGY.
[2017-12-27] MEDS: Enoxaparin(*) 40 MG/0.4 ML SYR SUBCUT SCH (16:25)
[2017-12-28] MEDS: Mometasone/Formoter 100/5 MDI INH SCH (07:53)
[2017-12-28] MEDS: Tiotropium CAP.INH* CAP.INH/18 MCG (USE ORDER SET !) INH SCH (07:54)
[2017-12-28 08:51] VITALS: BP 100/51
[2017-12-28] MEDS: Diphenoxylat/Atrop 2.5-0.025M* 1 TAB PO SCH ×2 (09:01→12:10)
[2017-12-28] MEDS: Aspirin 81 mg CHEW TAB* 81 MG TAB.CHEW PO SCH (09:02)
[2017-12-28] MEDS: Citalopram TAB* 40 MG PO SCH (09:02)
--- NOTE | 2017-12-28 09:42 | PN ---
Progress Note - Progress Note Date of Service: 12/28/17 SOAP: Subjective: CC: lung abscess HPI: 57 year old man with right middle lobe lung abscess when found to have a cavitary lung lesion in setting of fever at the end of October. His sputum culture at that time grew Ecoli that was sensitive to ancef, FQ, Sulfa. He was on IV antibiotics and then DC on ertapenem for convenience. Xray done here before transfer to [facility] did not show a lung lesion. He feels well, eager to go home, has no cough or chest pain. Objective: Vital Signs Temp 36.6 C 12/28/17 07:32 Pulse 79 12/28/17 07:32 Resp 20 12/28/17 09:01 BP 100/51 12/28/17 07:32 Pulse Ox 93 12/28/17 07:32 Intake & Output 12/27/17 12/28/17 12/28/17 18:59 06:59 18:59 Intake Total 915 0 180 Output Total 1700 1200 Balance -785 -1200 180 Weight 241 lb 8 oz Intake: IV Fluids 115 NS 15 ceftriaxone 100 Oral 800 0 180 Output: Urine 1400 Liquid Stool 200 Colostomy 1000 Ileostomy 300 Other: # Bowel Movements 0 # Voids 0 Gen:awake, no distress Heart:Regular, no murmur Lungs:CTA BL Abd:+BS NTND soft; ostomy Skin: no rash Laboratory Results - last 24 hr 12/27/17 12/27/17 12/27/17 12:25 18:18 23:28 POC Glucose (mg/dL) 121 H 92 77 12/28/17 07:27 POC Glucose (mg/dL) 119 H CXR: RML 2-3 cm focal infiltrate Assessment: 1. Lung abscess, E.coli, xray and CRP improving though not resolved 2. elevated CRP due to #1 3. necrotic bowel s/p resection and ostomy 4. morbid obesity Plan: 1. Has completed 6 weeks IV antibiotics, given ongoing radiographic abnormality will add augmentin 500 mg po bid for 21 days, fu with me 2 weeks and recheck chest imaging towards end of antibiotic course. Discussed with Titi MELTON
--- NOTE | 2017-12-29 12:50 | DS ---
CC: Dr. Shima Akers; Dr. Guicho Fortune; Dr. Lucas Fall, [facility] * DISCHARGE SUMMARY: DATE OF ADMISSION: 12/12/17 DATE OF DISCHARGE: 12/28/17 PRIMARY CARE PROVIDER: Dr. Shima kAers. ATTENDING PROVIDER: Tegan Perez MD* (DICTATED BY GERONIMO NUGENT) PRIMARY DISCHARGE DIAGNOSES: 1. Protein malnutrition status post laparotomy with small and large bowel resection. 2. Ileostomy. 3. Lung abscess. SECONDARY DISCHARGE DIAGNOSES: 1. Chronic obstructive pulmonary disease. 2. History of abdominal hernia repair. 3. Depression. 4. Hypertension. STUDIES DONE WHILE IN THE HOSPITAL: Chest x-ray from 12/13/17 read as there has been interval development of consolidation in the right lower lobe, concern for lung abscess further evaluation with contrast-enhanced CT of the chest. Chest x-ray from 12/15/17 read as PICC line is noted in the superior vena cava, right lower lobe infiltrate, no changes since 12/13/17. Abdomen and pelvis CT from 12/19/17 read as post colonic surgical changes as described with right lower quadrant colostomy, postsurgical change at the midline supraumbilical laparotomy, gas within the subcutaneous tissue plane, surgical at the midline and left paramidline, supraumbilical ventral abdominal wall, there is a 3 cm AP x 9.5 cm transverse x 7.0 cm cephalocaudal loculated fluid collection with a predominant thin peripheral enhancing margin. The differential includes postoperative seroma or hematoma as well as early abscess formation. No intraarticular gas within the collection to favor abscess surrounding the subcutaneous tissue plane, edema, and subcutaneous emphysema. No intraperitoneal abscess collection evident. Right large and left small dependent pleural effusions with a portion of basal atelectasis without gross change. Additional consolidation of the right middle lobe, basal inflammatory changes not entirely exclude a small pericardial effusion. Chest x-ray from 12/27/17 read as there is a 3.6-cm rounded nodule within the right middle lobe on early abscess. This may represent residual abscess in ____ _ in the differential, recommend consideration and further evaluation with contrast-enhanced CT of the chest to follow up until resolution to exclude underlying pulmonary parenchymal pathology. MEDICATIONS AT DISCHARGE: 1. Tylenol 650 mg p.o. daily. 2. Lomotil 2 tabs p.o. a.c. and h.s. 3. Dulera 2 puffs inhalation b.i.d. 4. Augmentin 500 mg p.o. b.i.d. x42. 5. DuoNeb 1 neb inhalation q.4 hours as needed. 6. Aspirin 81 mg p.o. daily. 7. Citalopram 40 mg p.o. daily. Medications discontinued on discharge: 1. Triamterene and hydrochlorothiazide 75/50. 2. Lisinopril 5 mg p.o. daily. 3. Imodium 4 mg p.o. four times a day a.c. and h.s. 4. Metoprolol tartrate 25 mg p.o. b.i.d. HOSPITAL COURSE: This is a brief summary of the patient's presentation. For more details please see the history and physical from Kaylee Awan NP , on 12/12/17. In brief, the patient is a 57-year-old male with a past medical history significant for the above, who presented initially to [facility] 1 month before, on presentation was transferred from the emergency department of [facility]. The patient had a GI bleed with incarcerated bowel and acute renal failure. The patient had dialysis at [facility]. The patient also during his hospital course had acute colitis, septic shock, and acute respiratory failure requiring intubation twice. The patient was started on ertapenem for bacteremia. The patient had almost 100 cm of the bowel removed on 11/14/17. The patient was found to have a lung abscess on . The patient had high output ostomy with malabsorption and weight loss. The patient was started on TPN. The patient's renal function normalized and he was transferred to [facility] for rehabilitation on swing status. The patient was continued on ertapenem, which was switched to ceftriaxone per Dr. Paramjit Dennis due to susceptibility from the patient's lung abscess. The patient was up and ambulating in the hallway. The patient was started on a high-protein diet. The patient was initially on oxygen and his oxygen was able to be titrated down as his respiratory status improved. The patient had issues with maintaining his ostomy and had some skin breakdown surrounding this. The patient was continued on TPN. The patient had a CT of the abdomen and pelvis as above. The patient's fluid collection was deemed to be unlikely to be intraabdominal extension or abscess. The patient was maintained with wet-to- dry dressings for his midline wound. The patient's vital signs remained stable. The patient had no symptoms of ongoing infection. The patient's appetite improved and was able to maintain more fluid intake with decreased output from his ostomy. The patient's hemoglobin increased during his hospitalization. The patient was monitored on fingersticks a.c. and h.s., which were generally good. The patient had a normal prealbumin with a slightly low albumin on 11/27/17 which were trending up. The patient's prealbumin was also trending up. The patient continued to improve. The patient was trialed on wound VAC starting on 12/23/17, which was not continued due to inability to maintain a seal. The patient on 12/27/17 had an chest x-ray that showed residual abscess and was switched to Augmentin as above. The patient on was stable and amenable for discharge. PHYSICAL EXAMINATION: On the date of discharge, general: The patient is a 57- year- old male, appears stated age, sitting comfortably in bed, in no acute distress. Vital Signs: At the time of discharge, temperature 98.0, pulse rate 79, respiratory rate 18, oxygen saturation 93% on room air, and blood pressure 100/51. HEENT: Head normocephalic and atraumatic. Sclerae anicteric. No conjunctival injection. Nasal mucosa moist, oral mucosa moist. No oropharyngeal erythema, discharge, or exudate. Neck: Supple and nontender. No lymphadenopathy. No carotid bruits auscultated, no JVD. Cardiac: Regular rate and rhythm. No clicks, murmurs, gallops, or rubs. Pulses 2+ in bilateral dorsalis pedis, posterior tibialis, and radial areas. Respiratory: Clear to auscultation bilaterally. No wheezes, rales, or rhonchi. Good air exchange bilaterally. Abdomen: Soft, nontender, and nondistended. Bowel sounds present , normoactive in all 4 quadrants. Ostomy present draining thin brown stool. Wound with wet-to-dry dressing with ABD pad in place on the left side of abdomen. Genitourinary: No suprapubic or CVA tenderness. Skin: No rash except as above. Neuro: Cranial nerves II through XII intact. No focal deficits. Alert and oriented x3. Psychiatric: Pleasant and cooperative. LABORATORY DATA: White blood cell count 10.8, hemoglobin 9.7, platelet count 343. Sodium 138, potassium 3.9, chloride 108, carbon dioxide 26, anion gap 4, BUN 22, creatinine 0.64, glucose 128, calcium 8.6, phosphorous 3.5, magnesium 1.5. Bilirubin 0.2, AST 10, ALT 16, alkaline phosphatase 91. CRP 11.76. Protein 6.4, albumin 2.9, globulin 3.5, prealbumin 26. Triglycerides 142, cholesterol 103. DISCHARGE PLAN: The patient will be discharged to home. The patient will have VNS support. The patient has also been instructed on ostomy care and wound care. The patient to follow up with his primary care provider within several days. The patient at this time should have a repeat magnesium panel. The patient should be followed routinely for his nutritional status. The patient should follow up with Surgery for wound care and should establish with a wound clinic as soon as they are accepting new patients. The patient should follow up with Dr. Dennis within 2 to 3 weeks for evaluation of his ongoing need for antibiotics. The patient should follow up with his primary care provider to discuss his blood pressure management as he has had no need for antihypertensives while in the hospital. The patient should return to the hospital for the alarming symptoms such as severely increased ostomy output, the patient passing out, chest pain, shortness of breath, high fevers, or other alarming symptoms. The patient should have a high-protein unrestricted diet and avoid strenuous activity until cleared by his surgeon through [facility]. TIME SPENT: Approximately 60 minutes was spent on the discharge of this patient , 30 of which was spent [id number] with the patient obtaining the history and physical and discussing the treatment plan. GERONIMO NUGENT [id number]/CPS #: [id number] FRANCISCO
== END 2017-12-28 15:00 | disposition home health service (06) | DRG 421 ==
LOC: MED 15:23
PROVIDERS: ADMIT Internal Medicine; ATTEND Internal Medicine
PROC: 02HV33Z Insertion of Infusion Device into Superior Vena Cava, Percutaneous Approach (ICD-10-PCS; principal; 2017-12-15)
PROC: 3E0336Z Introduction of Nutritional Substance into Peripheral Vein, Percutaneous Approach (ICD-10-PCS; 2017-12-15)
PROC: 2W13X6Z Compression of Abdominal Wall using Pressure Dressing (ICD-10-PCS; 2017-12-23)
PROC: 2W53X6Z Removal of Pressure Dressing on Abdominal Wall (ICD-10-PCS; 2017-12-25)
DX: E44.0 Moderate protein-calorie malnutrition (principal); J85.2 Abscess of lung without pneumonia; K91.2 Postsurgical malabsorption, not elsewhere classified; J96.11 Chronic respiratory failure with hypoxia; R18.8 Other ascites; J98.11 Atelectasis; J90 Pleural effusion, not elsewhere classified; J44.9 Chronic obstructive pulmonary disease, unspecified; F32.9 Major depressive disorder, single episode, unspecified; I10 Essential (primary) hypertension; Y83.6 Removal of other organ (partial) (total) as the cause of abnormal reaction of the patient, or of later complication, without mention of misadventure at the time of the procedure; Y92.9 Unspecified place or not applicable; E66.01 Morbid (severe) obesity due to excess calories; R79.82 Elevated C-reactive protein (CRP); B96.20 Unspecified Escherichia coli [E. coli] as the cause of diseases classified elsewhere; Z87.891 Personal history of nicotine dependence; Z99.81 Dependence on supplemental oxygen; Z90.49 Acquired absence of other specified parts of digestive tract; Z23 Encounter for immunization; Z93.2 Ileostomy status; Z79.82 Long term (current) use of aspirin; Z79.51 Long term (current) use of inhaled steroids; Z68.31 Body mass index [BMI] 31.0-31.9, adult
CPT/HCPCS: 36415; 71045; 71046; 74177; 80048; 80053; 82465; 83735; 84100; 84134; 84478; 85025; 85027; 86140; 86141; 90686; 94640; 99406; A9270-GY; C1751; G8978-GP-CI; G8979-GP-CH; J0696; J1335; J1650; J2185; J2997; J3411; J3475; J3480; Q9967